=== PATIENT | female | born 1950 | race Caucasian/White ===

== ENCOUNTER 2017-06-01 00:41 | Emergency (ER) | payer MEDICARE, OTHER ==
[~2017-06-01] VITALS: Ht 167.6 cm; Wt 77.1 kg
[~2017-06-01 00:41] MED LIST: KEFLEX500 MG PO; LANTUS100 UNITS/; LISINOPRIL2.5 MG; METFORMIN HCL500 MG PO; SULFAMETHOXAZO1 EAC1 PO
[2017-06-01] MEDS ORDERED: OMEPRAZOLE20 MG PO (03:38)
[2017-06-02] MEDS ORDERED: ZOFRAN ODT4 MG PO (21:34)
[2017-07-13] MEDS ORDERED: LANTUS100 UNITS/ SUB-Q (15:36)
[2017-07-13] MEDS ORDERED: ASPIR 8181 MG PO (15:39)
[2017-07-13] MEDS ORDERED: MELATIN3 MG PO (15:40)
[2017-07-13] MEDS ORDERED: ADVIL PM CAPLE1 EACH PO (15:40)
[2017-09-03] MEDS ORDERED: NORCO 5-325 TA1 EACH PO (18:51)
[2017-09-03] MEDS ORDERED: ZOFRAN ODT4 MG PO (18:51)
[2017-09-03] MEDS ORDERED: REGLAN10 MG PO (21:19)
== END 2017-06-01 03:56 | disposition home or self-care (01) ==
LOC: ED 00:41
DX: R10.13 Epigastric pain (principal); R33.9 Retention of urine, unspecified; E11.9 Type 2 diabetes mellitus without complications; I10 Essential (primary) hypertension; Z88.1 Allergy status to other antibiotic agents; Z88.5 Allergy status to narcotic agent; Z79.4 Long term (current) use of insulin; Z79.899 Other long term (current) drug therapy
CPT/HCPCS: 74177; 80053; 81001; 83690; 85025; 87088; 96361; 96374; 99284; J2270; J2405; J7030; Q9967

== ENCOUNTER 2017-06-02 19:15 | Emergency (ER) | payer MEDICARE, OTHER ==
[~2017-06-02] VITALS: Ht 167.6 cm; Wt 77.1 kg
[~2017-06-02 19:15] MED LIST changes: +OMEPRAZOLE20 MG PO
[2017-06-02] MEDS ORDERED: ZOFRAN ODT4 MG PO (21:34)
[2017-07-13] MEDS ORDERED: LANTUS100 UNITS/ SUB-Q (15:36)
[2017-07-13] MEDS ORDERED: ASPIR 8181 MG PO (15:39)
[2017-07-13] MEDS ORDERED: ADVIL PM CAPLE1 EACH PO (15:40)
[2017-07-13] MEDS ORDERED: MELATIN3 MG PO (15:40)
[2017-09-03] MEDS ORDERED: ZOFRAN ODT4 MG PO (18:51)
[2017-09-03] MEDS ORDERED: NORCO 5-325 TA1 EACH PO (18:51)
[2017-09-03] MEDS ORDERED: REGLAN10 MG PO (21:19)
== END 2017-06-02 22:00 | disposition home or self-care (01) ==
LOC: ED 19:15
DX: K29.00 Acute gastritis without bleeding (principal); E11.9 Type 2 diabetes mellitus without complications; I10 Essential (primary) hypertension; Z88.1 Allergy status to other antibiotic agents; Z88.5 Allergy status to narcotic agent; Z79.899 Other long term (current) drug therapy; Z79.4 Long term (current) use of insulin
CPT/HCPCS: 76705; 80053; 81001; 83690; 85025; 96374; 96375; 99284; J1170; J2405

== ENCOUNTER 2017-07-14 09:21 | Day surgery (SDC) | payer MEDICARE, OTHER ==
[~2017-07-14] VITALS: Ht 167.6 cm; Wt 83.5 kg
[~2017-07-14 09:21] MED LIST changes: +ADVIL PM CAPLE1 EACH PO; +ASPIR 8181 MG PO; +LANTUS100 UNITS/ SUB-Q; +MELATIN3 MG PO; +ZOFRAN ODT4 MG PO
--- NOTE | 2017-07-14 11:06 | NUR ---
07/14/17 1105 Rika David 1042-PATIENT ARRIVED TO PACU ON 3L NC O2 SAT 99% PATIENT DROWSY DENIES PAIN OR NAUSEA. GLUCOSE CHECKED 105. ABDOMEN SOFT. 1059-PATIENT WEANED TO RA O2 SAT 95% TOLERATED SIPS OF WATER. 1105-PATIENT SLEEPING RR EVEN O2 92% RA
--- NOTE | 2017-07-15 09:12 | OR ---
[facility] [address], [place] [address] Signed DATE OF OPERATION: 07/14/2017 SURGEON: Anushka Love MD PREOPERATIVE DIAGNOSIS: Epigastric abdominal pain. POSTOPERATIVE DIAGNOSES: 1. Mild diffuse gastritis. 2. Tdbuubo-og-pwkbcqdw hiatal hernia. PROCEDURE: EGD with CLOtest and biopsies of bulb, antrum and GE junction. ESTIMATED BLOOD LOSS: None. INDICATIONS: Luis Newby is a 67-year-old female, who had at least two episodes of significant epigastric abdominal pain. She ended up in the emergency room. A CT scan of the abdomen and pelvis and the ultrasound of the upper abdomen is fine. HIDA scan showed her ejection fraction of 91%. She felt that it did very little to reproduce her symptoms with her injection of the CCK. She said that she was a little nauseated. She took omeprazole for 2 weeks and said that she actually felt better. She stopped that because she is afraid of osteoporosis. She told me she also was using a H2 mera and thought that helped as well. In the meantime, she was eating yogurt and cottage cheese. In the office, I gave her a pamphlet on upper endoscopy. We looked at that together along with the risks and benefits. We also discussed the need for IV conscious sedation. She had expressed understanding and wished to proceed. PROCEDURE NOTE: Luis Newby was taken into our endoscopy suite and placed in the supine semi-recumbent position. The posterior oropharynx was anesthetized with Hurricaine spray. She was given 3 mg of Versed and 100 mcg of fentanyl to cover the case. A bite block was utilized for the case. The adult gastroscope was introduced and advanced all the way out into the third portion of the duodenum under direct visualization of camera without difficulty. The duodenum was unremarkable. 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 The stomach showed some very mild diffuse erythematous changes, so biopsy was taken of the antrum for pathology as well as CLOtest. Upon retroflexion of scope, she clearly has a llecvun-kd-ukpnkxvr sized hiatal Electronically Signed By: ANUSHKA LOVE MD 07/15/17 0912 PATIENT NAME: LUIS MIGUEL OPERATIVE REPORT DATE OF : 48 REPORT #: [id number] PHYSICIAN: ANUSHKA LOVE MD PCP: MARINA COOK DO REPORT IS CONFIDENTIAL AND NOT TO BE RELEASED WITHOUT AUTHORIZATION [facility] [address], [place] [address] Signed hernia. There is no gastric or esophageal varices. The scope was withdrawn up to the area of the GE junction, which was compliant without stricture. She has moderate disruption to the Z-line. We went and took a biopsy of the GE junction. No Laws's mucosa, no distal esophagitis. The middle and upper esophagus were unremarkable. After this, the gas was suctioned out and the gastroscope removed. Luis Newby tolerated the procedure quite well. RECOMMENDATIONS: I will see Luis Newby back in my office in 7 to 14 days. She might consider ongoing therapy with an H2 mera. Anushka Love MD ALB/MODL /[id number] cc: MD Essie Novak PA-C Copies: ANUSHKA LOVE MD, CHLOE K PA-C ~ Electronically Signed By: ANUSHKA LOVE MD 07/15/17 0912 PATIENT NAME: LUIS MIGUEL OPERATIVE REPORT DATE OF : 48 REPORT #: [id number] PHYSICIAN: ANUSHKA LOVE MD PCP: MARINA COOK DO REPORT IS CONFIDENTIAL AND NOT TO BE RELEASED WITHOUT AUTHORIZATION
[2017-09-03] MEDS ORDERED: ZOFRAN ODT4 MG PO (18:51)
[2017-09-03] MEDS ORDERED: NORCO 5-325 TA1 EACH PO (18:51)
[2017-09-03] MEDS ORDERED: REGLAN10 MG PO (21:19)
== END 2017-07-14 11:45 | disposition home or self-care (01) ==
LOC: OPS 09:21 → DS 09:21 → OPS 11:45
PROVIDERS: Colon & Rectal Surgery
PROC: 0DB78ZX Excision of Stomach, Pylorus, Via Natural or Artificial Opening Endoscopic, Diagnostic (ICD-10-PCS; 2017-07-14)
PROC: 0DB48ZX Excision of Esophagogastric Junction, Via Natural or Artificial Opening Endoscopic, Diagnostic (ICD-10-PCS; 2017-07-14)
PROC: 0DB98ZX Excision of Duodenum, Via Natural or Artificial Opening Endoscopic, Diagnostic (ICD-10-PCS; principal; 2017-07-14 10:30)
DX: K29.50 Unspecified chronic gastritis without bleeding (principal); K29.80 Duodenitis without bleeding; K20.9 Esophagitis, unspecified; K44.9 Diaphragmatic hernia without obstruction or gangrene; E78.5 Hyperlipidemia, unspecified; E11.9 Type 2 diabetes mellitus without complications; Z88.1 Allergy status to other antibiotic agents; Z88.5 Allergy status to narcotic agent; Z88.8 Allergy status to other drugs, medicaments and biological substances; Z79.82 Long term (current) use of aspirin; Z79.899 Other long term (current) drug therapy; Z79.84 Long term (current) use of oral hypoglycemic drugs
CPT/HCPCS: 86677; 88305; G0500; J2250; J3010; J7120

== ENCOUNTER 2017-09-02 04:18 | Emergency (ER) | payer MEDICARE, OTHER ==
[~2017-09-02] VITALS: Ht 167.6 cm; Wt 83.5 kg
[2017-09-02] MEDS ORDERED: PROTONIX40 MG PO (06:46)
[2017-09-03] MEDS ORDERED: ZOFRAN ODT4 MG PO (18:51)
[2017-09-03] MEDS ORDERED: NORCO 5-325 TA1 EACH PO (18:51)
[2017-09-03] MEDS ORDERED: REGLAN10 MG PO (21:19)
== END 2017-09-02 07:21 | disposition home or self-care (01) ==
LOC: ED 04:18
DX: K29.00 Acute gastritis without bleeding (principal); E11.9 Type 2 diabetes mellitus without complications; I10 Essential (primary) hypertension; Z87.891 Personal history of nicotine dependence; Z88.1 Allergy status to other antibiotic agents; Z88.5 Allergy status to narcotic agent; Z88.6 Allergy status to analgesic agent; Z79.899 Other long term (current) drug therapy; Z79.84 Long term (current) use of oral hypoglycemic drugs; Z79.82 Long term (current) use of aspirin
CPT/HCPCS: 80053; 81001; 83690; 85025; 96374; 96375; 99283; J2270; J2405; J2765; J7030

== ENCOUNTER 2017-09-03 22:07 | Observation (INO) | payer MEDICARE, OTHER ==
[~2017-09-03] VITALS: Ht 167.6 cm; Wt 82.8 kg
--- NOTE | 2017-09-04 05:30 | NUR ---
up to brp, voided dark yellow urine, back to bed, no c/o n/v, slept this shift. No c/o pain . IVF infusing w/o problems. Coop with hosp routine. Requires one person assist.
--- NOTE | 2017-09-04 07:15 | NUR ---
BEDSIDE HANDOFF REPORT RECEIVED FROM CREATIVE INTERN RN. PT RESTING IN BED. PT DENIES NEEDS AT THIS TIME.
--- NOTE | 2017-09-04 07:51 | NUR ---
PT BLOOD GLUCOSE 201. PT DENIES PAIN. PT ON ROOM AIR, LUNG SOUNDS CLEAR. PT DENIES NAUSEA, ORDERED SMALL BREAKFAST, BOWLE TONES ACTIVE. PT WITHOUT EDEMA, CMS INTACT, PULSES PALPABLE. IV FLUIDS INFUSING AT 125 ML/HR, IV SITE PATENT, FLUSHED. PT ASSISTED TO BATHROOM WITH SBA, VOIDED, BRUSHED TEETH. PT SITTING IN CHAIR FOR BREAKFAST. PT DENIES OTHER NEEDS AT THIS TIME.
--- NOTE | 2017-09-04 09:17 | NUR ---
PATIENT UP IN CHAIR, HAS ONLY EATEN YOGURT FOR BREAKFAST, SAVED BANANA. HAS NOT DRANK ANYTHING. EAGER TO "GET OUT OF HERE" FRESH ICE WATER GIVEN. VISITOR SITTING NEXT TO PATIENT. CALL LIGHT IN REACH
== END 2017-09-04 11:00 | disposition home or self-care (01) ==
LOC: ED 22:07 → MS 22:09
PROVIDERS: ADMIT Internal Medicine
DX: R10.13 Epigastric pain (principal); R11.2 Nausea with vomiting, unspecified; E11.9 Type 2 diabetes mellitus without complications; I10 Essential (primary) hypertension; M47.9 Spondylosis, unspecified; K44.9 Diaphragmatic hernia without obstruction or gangrene; Z88.1 Allergy status to other antibiotic agents; Z88.5 Allergy status to narcotic agent; Z88.8 Allergy status to other drugs, medicaments and biological substances; Z79.84 Long term (current) use of oral hypoglycemic drugs; Z79.82 Long term (current) use of aspirin; Z79.891 Long term (current) use of opiate analgesic; Z79.899 Other long term (current) drug therapy
CPT/HCPCS: 94762; 96374; 99285; G0378

== ENCOUNTER → 2017-09-03 | Emergency (ER) | payer MEDICARE, OTHER ==
[~2017-09-03] VITALS: Ht 167.6 cm; Wt 68.0 kg
[~2017-09-03] MED LIST changes: +NORCO 5-325 TA1 EACH PO; +PROTONIX40 MG PO; +REGLAN10 MG PO
== END ==
LOC: ED 18:22
DX: K29.70 Gastritis, unspecified, without bleeding (principal); K44.9 Diaphragmatic hernia without obstruction or gangrene; E11.9 Type 2 diabetes mellitus without complications; I10 Essential (primary) hypertension; Z87.891 Personal history of nicotine dependence; Z88.1 Allergy status to other antibiotic agents; Z88.5 Allergy status to narcotic agent; Z88.8 Allergy status to other drugs, medicaments and biological substances; Z79.899 Other long term (current) drug therapy; Z79.82 Long term (current) use of aspirin; Z79.84 Long term (current) use of oral hypoglycemic drugs
CPT/HCPCS: 74177; 80053; 81001; 83690; 85025; 87088; 96361; 96374; 96375; 99284; J2270; J2405; J2765; J7030; Q9967

== ENCOUNTER 2017-11-04 07:25 | Emergency (ER) | payer MEDICARE, OTHER ==
[~2017-11-04] VITALS: Ht 167.6 cm; Wt 82.8 kg
[2017-11-04] MEDS ORDERED: LANTUS100 UNITS/ SUB-Q (07:45)
== END 2017-11-04 10:37 | disposition home or self-care (01) ==
LOC: ED 07:25
DX: R10.13 Epigastric pain (principal); K44.9 Diaphragmatic hernia without obstruction or gangrene; E11.9 Type 2 diabetes mellitus without complications; I10 Essential (primary) hypertension; Z88.1 Allergy status to other antibiotic agents; Z88.5 Allergy status to narcotic agent; Z88.8 Allergy status to other drugs, medicaments and biological substances; Z79.4 Long term (current) use of insulin; Z79.899 Other long term (current) drug therapy; Z79.82 Long term (current) use of aspirin
CPT/HCPCS: 80053; 83690; 85025; 96361; 96374; 96375; 99284; J1200; J1630; J7030

== ENCOUNTER 2019-01-30 08:27 | Day surgery (SDC) | payer MEDICARE, OTHER ==
[~2019-01-30] VITALS: Ht 167.6 cm; Wt 87.5 kg
[~2019-01-30 08:27] MED LIST changes: +CINNAMON500 MG PO; +FISH OIL 1,0001 EAC3 PO; +ICAPS AREDS SO1 EACH PO; +MAGNESIUM30 MG PO; +VITAMIN D400 UNIT PO
--- NOTE | 2019-01-30 10:21 | NUR ---
01/30/19 1021 Sheets,[place] 1008 PT ARRIVES TO PACU ASLEEP AND WAKES EASILY TO VERBAL STIMULI, PT DENIES NAUSEA AND PAIN. RESP EVEN AND UNLABORED. VSS. CBG 170. PT FALLS BACK ASLEEP.
--- NOTE | 2019-01-31 05:48 | OR ---
[facility] [address] [place], [place] [address] Signed DATE OF OPERATION: 01/30/2019 SURGEON: Anushka Love MD PREOPERATIVE DIAGNOSIS: Screening. POSTOPERATIVE DIAGNOSES: 1. Minimal sigmoid diverticulosis. 2. Lrsgcei-er-dcvrbyxl external anal skin tags. 3. Minimal internal hemorrhoids. PROCEDURE: Colonoscopy without biopsy. ESTIMATED BLOOD LOSS: None. INDICATIONS: Luis is a 68-year-old female, asked to see me for a followup screening colonoscopy. She had a negative colonoscopy back in 2010. She has no lower GI complaints currently. No family history of colon cancer or polyps. I met with Luis in the office and I gave her a pamphlet on colonoscopy. We reviewed the nature of the test along with the risks including, but not limited to gas, bloating, crampy abdominal pain, bleeding, perforation requiring surgery, and missed diagnosis. We also discussed the need for IV conscious sedation. She has done well with Versed and fentanyl in the past. She had expressed understanding and wished to proceed. PROCEDURE NOTE: Luis was taken into our endoscopy suite and placed in the left lateral decubitus position. She was given IV sedation with 6 mg of Versed and 125 mcg of fentanyl. A digital rectal exam was performed and she does have some external anal skin tags. The adult colonoscope was introduced and advanced all around into the cecum under direct visualization of camera. It took some extra sedation and abdominal compression in order to advance the scope. Overall, the prep was moderate. There were a few areas of liquid particulate stool matter. Most of that was suctioned out. We could see the appendiceal orifice and the ileocecal valve. The scope was slowly withdrawn. We took pictures throughout for photodocumentation. She does have a few diverticula in the sigmoid colon. They were mrzvyug-lk-ssnifnrx in size, minimal in number, and scattered about. The rectum was unremarkable. Upon retroflexion of scope, she does have minimal internal Electronically Signed By: ANUSHKA LOVE MD 01/31/19 0548 PATIENT NAME: LUIS MIGUEL ANN OPERATIVE REPORT DATE OF : 48 REPORT #: [id number] PHYSICIAN: ANUSHKA LOVE MD PCP: ESSIE DENTON PA-C REPORT IS CONFIDENTIAL AND NOT TO BE RELEASED WITHOUT AUTHORIZATION [address] [address] Signed hemorrhoids. After this, the gas was suctioned out and colonoscope removed. Luis tolerated the procedure quite well. RECOMMENDATIONS: Luis is welcome to follow up in 10 years for repeat colonoscopy so long as her health holds up. Anushka Love MD ALB/RIKKIL /[id number] cc: MD Essie Novak PA-C Copies: ANUSHKA LOVE MD, CHLOE K PA-C ~ Electronically Signed By: ANUSHKA LOVE MD 01/31/19 0548 PATIENT NAME: LUIS MIGUEL ANN OPERATIVE REPORT DATE OF : 48 REPORT #: [id number] PHYSICIAN: ANUSHKA LOVE MD PCP: ESSIE DENTON PA-C REPORT IS CONFIDENTIAL AND NOT TO BE RELEASED WITHOUT AUTHORIZATION
[2019-01-31] MEDS ORDERED: PROTONIX40 MG PO (16:00)
== END 2019-01-30 11:00 | disposition home or self-care (01) ==
LOC: DS 08:27 → OPS 08:27 → DS 09:45 → OPS 11:00
PROVIDERS: Colon & Rectal Surgery
PROC: 0DJD8ZZ Inspection of Lower Intestinal Tract, Via Natural or Artificial Opening Endoscopic (ICD-10-PCS; principal; 2019-01-30 09:45)
DX: Z12.11 Encounter for screening for malignant neoplasm of colon (principal); K57.30 Diverticulosis of large intestine without perforation or abscess without bleeding; K64.4 Residual hemorrhoidal skin tags; K64.8 Other hemorrhoids; E78.5 Hyperlipidemia, unspecified; E11.9 Type 2 diabetes mellitus without complications; M47.812 Spondylosis without myelopathy or radiculopathy, cervical region; Z88.1 Allergy status to other antibiotic agents; Z88.5 Allergy status to narcotic agent; Z88.6 Allergy status to analgesic agent; Z79.82 Long term (current) use of aspirin; Z79.4 Long term (current) use of insulin; Z79.899 Other long term (current) drug therapy
CPT/HCPCS: G0121; J2250; J3010; J7121

== ENCOUNTER 2019-01-31 12:53 | Emergency (ER) | payer MEDICARE, OTHER ==
[~2019-01-31] VITALS: Ht 167.6 cm; Wt 87.8 kg
[2019-01-31] MEDS ORDERED: PROTONIX40 MG PO (16:00)
== END 2019-01-31 16:35 | disposition home or self-care (01) ==
LOC: ED 12:53
DX: G89.18 Other acute postprocedural pain (principal); R10.13 Epigastric pain; E11.9 Type 2 diabetes mellitus without complications; I10 Essential (primary) hypertension; Z87.891 Personal history of nicotine dependence; Z88.8 Allergy status to other drugs, medicaments and biological substances; Z88.5 Allergy status to narcotic agent; Z88.1 Allergy status to other antibiotic agents; Z79.899 Other long term (current) drug therapy; Z79.82 Long term (current) use of aspirin; Z79.4 Long term (current) use of insulin
CPT/HCPCS: 74177; 80048; 85025; 99284-25; C9113; J2270; J2405; J2550; Q9967

== ENCOUNTER 2019-02-05 15:09 | Inpatient (IN) | payer MEDICARE, OTHER ==
[~2019-02-05] VITALS: Ht 167.6 cm; Wt 81.8 kg
[~2019-02-05 15:09] MED LIST changes: +MELATONIN10 M2 PO
--- OUTSIDE RECORDS SUMMARY | 2019-02-05 15:12 | XMS ---
PreManage Notification: LUIS MIGUEL [employer] Events No recent Security Events currently on file CRITERIA MET - [facility] [place] [facility] - 2 Visits in 30 Days CARE PROVIDERS ESSIE TOTH Physician Transit Survey Worker 11/07/2017-Current PHONE: [phone] Essie Toth PA-C Primary Care Current PHONE: [phone] Maritza Gotti Current PAC PHONE: Unknown [facility] has no Care Guidelines for this patient. E.D. VISIT COUNT (12 MO.) 2 [facility] TOTAL 2 NOTE: Visits indicate total known visits. ED/UCC VISIT TRACKING (12 MO.) 02/05/2019 15:10 [facility] [place] TYPE: Emergency COMPLAINT: - ABD PAIN, NAUSEA 01/31/2019 12:54 [facility] [place] TYPE: Emergency COMPLAINT: - POST OP ISSUES DIAGNOSES: - Personal history of nicotine dependence - Epigastric pain - Essential (primary) hypertension - Other acute postprocedural pain - Allergy status to other antibiotic agents status - 1 Type 2 diabetes mellitus without complications - Allergy status to oth drug/meds/biol subst status - Allergy status to narcotic agent status - residential (current) use of aspirin - residential (current) use of insulin - Other long-term (current) drug therapy INPATIENT VISIT TRACKING (12 MO.) No inpatient visits to display in this time frame [email or web address]
--- NOTE | 2019-02-05 19:05 | NUR ---
PATIENT TO ROOM. REPORT FROM [facility]. PATIENT ABLE TO TRANSFER TO BED STANDING AND TURNING. TOLERATED WELL. RATED PAIN 6/10 ON PAIN SCALE IN ABDOMEN HOWEVER FALLING ALSEEP WHEN ASKING QUESTIONS FOR HISTORY. PATIENT AWAKES EASILY, NOTED DESAT TO 70, APPLIED 3L NC WHILE SLEEPING SATURATION NOW 95%. IV FLUIDS INFUSING, CALL LIGHT WITHIN REACH.
--- NOTE | 2019-02-05 20:20 | NUR ---
PT CALLED NURSE, C/O NAUSEA AND ASKING FOR BAG. STARTED TO SIT UP AT EDGE OF BED THEN FELL BACK TO SLEEP. WHEN AWAKENED AGAIN REQUESTED SOMETHING FOR PAIN RATING EPIGASTRIC PAPIN 10/04 BUT THEN DID FALL BACK TO SLEEP. WHEN PT WAS AWAKE EXPRESSED CONCERN ABOUT SOMNOLENCE. WILL HOLD MS FOR NOW. DID GIVE PT 5MG REGLAN IV FOR NAUSEA. WHEN PT WAS ASLEEP DID LIGHTLY PALP ABD WITHOUT AWAKENING PT.
--- NOTE | 2019-02-05 21:20 | NUR ---
UP TO BSC TO VOID. JEANMARIE BEING UP FAIR THOUGH CONT TO BE NAUSEATED.
--- NOTE | 2019-02-05 23:50 | NUR ---
SAT AT EDGE OF BED FOR ABOUT 10 MIN PER REQUEST. CONT TO HAVE ABD PAIN 7/10. GIVEN 2 MG MORPHINE IV
--- NOTE | 2019-02-06 03:06 | NUR ---
CONT TO SLEEP. HAS OCC EPISODES OF SLEEP APNEA
--- NOTE | 2019-02-06 04:16 | NUR ---
AWAKE, UP TO BR TO VOID, JEANMARIE WELL. STATES IS FEELING MUCH BETTER. STATES NAUSEA IS MOSTLY GONE. GIVEN 5MG REGLAN IV. DR GORMAN GIVEN BRIEF UPDATE.
--- NOTE | 2019-02-06 04:34 | NUR ---
BACK TO SLEEP, SATS 90-91 WHILE ASLEEP.
--- NOTE | 2019-02-06 05:00 | NUR ---
PT BROUGHT TO THE FLOOR VIA BED FROM CCU. PT WAKES MINIMALLY DURING TRANSFER.
--- NOTE | 2019-02-06 06:22 | NUR ---
PT RESTING IN BED WITH EYES CLOSED. RESPIRATIONS EVEN AND UNLABORED. PT APPEARS TO BE SLEEPING. 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 CALL LIGHT IN REACH.
--- NOTE | 2019-02-06 08:30 | NUR ---
Patient is sleeping
--- NOTE | 2019-02-06 08:40 | NUR ---
PT APPEARS TO BE SLEEPING UPON THIS RN ENTERING ROOM. EYES CLOSED, RESP EVEN AND UNLABORED.
--- NOTE | 2019-02-06 09:17 | NUR ---
PT NOW AWAKE WATCHING TV. DENIES PAIN OR NAUSEA AT THIS TIME STATES "I'M FEELING MUCH BETTER." UPDATED ON POC. CALL LIGHT WITHIN REACH.
--- NOTE | 2019-02-06 13:00 | NUR ---
PT SITTING UP IN BED WATCHING TV. HAS BEEN JEANMARIE CLEAR LIQUIDS WELL. DENIES PAIN OR NAUSEA AT THIS TIME. GIVEN DIET 7UP AND TISSUES. CALL LIGHT WITHIN REACH.
[2019-02-06] MEDS ORDERED: ALENDRONATE SOD70 MG PO (14:29)
--- NOTE | 2019-02-06 14:32 | NUR ---
PT IS ALERT, ORIENTED AND RESTLESS.PT STATED SHE IS FEELING BETTER, BUT KNOWS THERE ARE MORE TESTS THAT ARE SCHEDULED TO GET TO THE BOTTOM OF WHAT IS GOING ON. SHE MENTIONED SHE WAS HUNGRY AND WOULD LIKE SOME BROTH AND FELT SHE COULD NOT WALK. ARRANGED BOTH WITH RN'S MEME AND ANASTASIYA. HAD PRAYER WITH PT, AND GAVE HER A Dominick ERVINPOSTS AND BLESSING. HER SON DAMASO CAME IN JUST I WAS LEAVING. WILL FOLLOW NEEDED
--- NOTE | 2019-02-06 15:20 | NUR ---
PT HAS BEEN INDEPENDENT IN ROOM. CONT TO JEANMARIE CLEARS WELL. DENIES PAIN, NAUSEA, OR OTHER CONCERNS AT THIS TIME. CALL LIGHT WITHIN REACH.
[2019-02-06] MEDS ORDERED: PROTONIX40 MG PO (17:00)
[2019-02-06] MEDS ORDERED: IRON325 M1 PO (17:00)
[2019-02-06] MEDS ORDERED: VITAMIN C500 M1 PO (17:00)
--- NOTE | 2019-02-06 17:01 | NUR ---
MED REC COMPLETE
--- NOTE | 2019-02-06 17:10 | NUR ---
PT SITTING UP IN BED WATCHING TV. SON AT BEDSIDE. DENIES NEEDS OR CONCERNS AT THIS TIME. CALL LIGHT WITHIN REACH.
--- NOTE | 2019-02-06 17:25 | NUR ---
Spoke with Lashon Newby in her room. She is a like time frient, c/o of severe abd pain yesterday, which is gone today. Lives alone, son visits daily and does her laundry as she has difficulty with stair due to knee and hip/back pain. She has been receiving injections from an [employer] for this. Feels she can dc to home when feeling better.
--- NOTE | 2019-02-06 18:42 | NUR ---
PT AMB HALLWAY WITH SON. JEANMARIE WELL, DENIES NEEDS OR CONCERNS AT THIS TIME.
--- NOTE | 2019-02-06 20:40 | NUR ---
PATIENT'S SON CAME AND GOT ME TO LET ME KNOW HIS MOTHER WAS HAVING DRY HEAVES AGAIN. 5MG IV REGLAN GIVEN AND 40MG IV PROTONIX. BLOOD SUGAR WAS 129 SO NO INSULIN NEEDED. PATIENT LAYING BACK IN BED TRYING TO RELAX AND HER [facility]. CALL LIGHT IN REACH.
--- NOTE | 2019-02-06 22:03 | NUR ---
PATIENT'S SON CAME OUT AND NAUSEA WAS NOT MUCH BETTER, AND ABD PAIN IS 9/10. 2MG IV MS SIVP WAS GIVEN AND DR. MALIK INFORMED. HE IS GOING TO PUT IN AN ORDER FOR PROMETHAZINE.
--- NOTE | 2019-02-06 22:22 | NUR ---
PATIENT GIVEN 12.5MG IV PHENERGAN IN 20MLS NS FOR CONTINUED NAUSEA. CALL LIGHT IN REACH. PATIENT SITTING ON BEDSIDE AT POSITION OF COMFORT. PATIENT'S SON ASLEEP ON THE COUCH.
--- NOTE | 2019-02-06 22:33 | NUR ---
V/S AND I&O TAKEN AND RECORDED BY THE PRIMARY RN KELSI.
--- NOTE | 2019-02-06 23:30 | NUR ---
PATIENT CALLED AND DRY HEAVES HAVE STOPPED, BUT SHE STILL SAID SHE IS NAUSEATED AND HAVING 8/10 ABD PAIN. INFORMED PATIENT IT WOULD BE A FEW MORE MINUTES UNTIL I COULD GIVE HER ANY MORE MORPHINE. PATIENT VRBALIZED UNDERSTANDING. CALL LIGHT IN REACH.
--- NOTE | 2019-02-07 00:11 | NUR ---
PATIENT GIVEN 2 MORE MG IV MORPHINE AND IS RESTING QUIETLY AT THIS TIME WITH EQUAL AND REGULAR RESPIRATIONS SUPINE ON IN HER BED. CALL LIGHT IN REACH.
--- NOTE | 2019-02-07 01:10 | NUR ---
CALLED LET HIM KNOW PATIENT IS STILL HAVING NAUSEA ISSUES AND 7/10 ABD PAIN. HE ORDERED 1 DOSE OF 1,000MG IV TYLENOL TO RUN OVER 15 MINUTES.
--- NOTE | 2019-02-07 01:12 | NUR ---
PATIENT WAS JUST GIVEN ANOTHER DOSE OF 4MG IV ZOFRAN.
--- NOTE | 2019-02-07 01:25 | NUR ---
PATIENT CURRENTLY GETTING HER IV TYLENOL. PATIENT DROWSY. CALL LIGHT IN REACH.
--- NOTE | 2019-02-07 02:33 | NUR ---
PATIENT RECEIVED 2MG MORE MS AND 5MG REGLAN FOR NAUSEA AND PAIN. PATIENT PAIN BACK TO 8/10 AND SHE IS VERY EXPRESIVE THAT THE CURRENT TREATMENT IS NOT REALLY WORKING. THIS INFORMATION WAS PASSED ON TO THE CHARGE NURSE, TOBI.
--- NOTE | 2019-02-07 04:55 | NUR ---
PATIENT HAS REQUIRED MORPHINE AND 3 DIFFERENT ANTIEMETICS MOST OF THE NIGHT, AND HAS BEEN UNCOMFORTABLE AND SLEPT OFF AND ON MOST OF THE NIGHT. NO MORE MEDS HAVE BEEN REQUESTED SINCE ABOUT 230AM AT THIS TIME AND PATIENT'S SON IS AT THE BEDSIDE. PATIENT IS ON D5LR WITH 20KCL AT 125MLS/HR. PATIENT IS CURRENTLY RESTING QUIETLY IN HER RIGHT SIDE, EYES CLOSED, RESPIRATIONS REGULAR AND EVEN, WITH CALL LIGHT IN REACH.
--- NOTE | 2019-02-07 05:54 | NUR ---
PATIENT JUST GOT ANOTHER 2MG IV MORPHINE FOR AND PAIN 08/04 AND PATIENT WAS GIVEN 12.5MG IV PHENERGAN IN 20MLS NS. PATIENT STOOD FOR MORNING WEIGHT. RESTING QUIETLY NOW. CALL LIGHT IN REACH. PATIENT'S SON IN ROOM.
--- NOTE | 2019-02-07 07:25 | NUR ---
PT UP TO RESTROOM WITH SBA FROM RECONSIGNMENT CLERK. REPORT RECEIVED FROM SALIMA DOLAN.
--- NOTE | 2019-02-07 07:48 | NUR ---
PT RESTING ON LEFT LATERAL SIDE IN BED EYES CLOSED AND RESPIRATIONS EVEN AND UNLABORED. CALL LIGHT IN REACH. PT REMAINS NPO IN PREPERATION FOR COLONOSCOPY. .
--- NOTE | 2019-02-07 07:50 | NUR ---
PATIENT RESTING IN BED. SON AND RN IN ROOM. HANDS AND FACE CLEANED. PATIENT SAYS THAT MAYBE SHE IS GOING TO TAKE A SHOWER LATER. CALL DAVID MEREDITH. NO OTHER NEEDS AT THIS TIME
--- NOTE | 2019-02-07 08:00 | NUR ---
PATIENT RESTING IN BED. SON IN ROOM. PATIENT REFUSED TO TAKE A SHOWER
--- NOTE | 2019-02-07 08:55 | CONS ---
[facility] [address], [place] [address] Signed DATE OF CONSULTATION: 02/07/2019 CHIEF COMPLAINT: Epigastric abdominal pain. HISTORY OF PRESENT ILLNESS: Luis is a 68-year-old diabetic female, we have known for several years. She has had several years of ongoing issues with epigastric abdominal pain. She has been in the emergency room multiple times. She has had upper endoscopy in 2018 showing a hiatal hernia with some mild gastritis. Her recent colonoscopy showed some minimal diverticulosis and minimal internal hemorrhoids. She has had multiple CT scans, all of which have been unremarkable including one just a few days ago in the emergency room. She had a gallbladder ultrasound previously and it was negative. The HIDA scan showed her gallbladder ejection fraction of 91%, but it did not seem to reproduce her symptoms any significant degree. She thought maybe she was little nauseated. She has now been in our emergency room a couple of times within the last week or so. She has been admitted to the Internal Medicine Service. Blood work shows that she has significant iron deficiency anemia. Luis is not able to tell me today if that is new or chronic. There was some mention in the notes that she has some rare blood disorder that she was diagnosed at [facility]. I have been asked to see her as the local general surgeon for consideration of repeat upper endoscopy with biopsies to rule out any gastritis or ulcer disease. ALLERGIES: Cipro, codeine, and meloxicam. MEDICATIONS: Magnesium, aspirin, cinnamon, fish oil, Icaps, Lantus, lisinopril, melatonin, metformin, vitamin D. PAST MEDICAL HISTORY: Hyperlipidemia, type 2 diabetes, cervical spondylolysis, hiatal hernia, gastritis, diverticulosis, internal hemorrhoids. PAST SURGICAL HISTORY: Includes oophorectomy in 1978, a in 1985, and knee surgery in 1975. SOCIAL HISTORY: She does not smoke, but has an occasional drink. She has a son. She prefers the [facility]. 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 She is and has two children. Her primary care provider is Essie Toth. Electronically Signed By: ANUSHKA LOVE MD 02/07/19 0855 PATIENT NAME: LUIS MIGUEL CONSULTATION DATE OF : 48 REPORT #: [id number] PHYSICIAN: ANUSHKA LOVE MD PCP: ESSIE TOTH PA-C REPORT IS CONFIDENTIAL AND NOT TO BE RELEASED WITHOUT AUTHORIZATION [facility] [address], [place] [address] Signed FAMILY HISTORY: Heart disease in her grandparents, father and sister. Cancer in her father. REVIEW OF SYSTEMS: She had 10 systems reviewed and she told me her had of colon cancer a number of years ago. This morning, she is quite sleepy, although, cooperative, was not particularly detailed in her answers. PHYSICAL EXAMINATION: VITAL SIGNS: Her blood pressure 151/88, heart rate 77, respiratory rate 18, temperature is 98.3. She is 97% on room air. She is 5 feet 6 inches and 83 kg. GENERAL: Luis is a 68-year-old female, who appears older than her stated age. LUNGS: Clear to auscultation. HEART: Regular rate and rhythm. ABDOMEN: Generally soft, flat, benign. She points to the epigastric area and the xiphoid process as the area of her pain. LABORATORY DATA: Her white blood count is 8.2 with a hemoglobin of 7.3, it started at 7.9, it went to 7.1 with hydration. Her mean cell volume 71. Her iron stores are low. Her sodium is 140, potassium was slightly low at 3.2, BUN 12, creatinine 0.46, glucose is running 94-156, and phosphorus is a little low at 2.4. RADIOGRAPHIC STUDIES: She had a CT scan of the abdomen and pelvis a few days ago in the emergency room and it is unremarkable. Her previous gallbladder ultrasound and HIDA scan were not particularly concerning. The recent colonoscopy without biopsy showed minimal diverticulosis and just small internal hemorrhoids. We know that an EGD from 2018 showed a small hiatal hernia with some mild gastroduodenitis. ASSESSMENT AND PLAN: Luis is a 68-year-old female, who presents with ongoing chronic intermittent epigastric/subxiphoid abdominal pain. She told me this morning she is feeling much better. I have been asked by the Medical Service to consider repeat upper endoscopy to rule out any gastritis or ulcers. Luis is very familiar with upper endoscopy. I reviewed with her today and she is more than happy to proceed in that direction. We are going to add her on to our surgical list today. We will get to her later this morning or sometime in the middle of the day. She has expressed understanding and would like to proceed as above. In the meantime, one has to keep in mind that her gallbladder could be acting up intermittently, particularly with her history of diabetes. It might be worthwhile to repeat the gallbladder ultrasound and/or HIDA scan in the future, although she does not specifically describe gastroparesis, she is diabetic and one could consider a solid phase gastric emptying scan. If the upper and lower endoscopy are negative with respect to the anemia, she might consider a small-bowel follow through and if that is Electronically Signed By: ANUSHKA LOVE MD 02/07/19 0855 PATIENT NAME: LUIS MIGUEL CONSULTATION DATE OF : 48 REPORT #: [id number] PHYSICIAN: ANUSHKA LOVE MD PCP: ESSIE TOTH PA-C REPORT IS CONFIDENTIAL AND NOT TO BE RELEASED WITHOUT AUTHORIZATION [facility] [address] [place] [address] [place], [place] [address] Signed negative, she could consider a capsule endoscopy. Anushka Love MD ALB/MODL /[id number] cc: LIDIA Newsome MD Copies: ESSIE TOTH PA-C, ANDREW L MD ~ Electronically Signed By: ANUSHKA LOVE MD 02/07/19 0855 PATIENT NAME: LUIS MIGUEL ANN CONSULTATION DATE OF : 48 REPORT #: [id number] PHYSICIAN: ANUSHKA LOVE MD PCP: ESSIE TOTH PA-C REPORT IS CONFIDENTIAL AND NOT TO BE RELEASED WITHOUT AUTHORIZATION
--- NOTE | 2019-02-07 09:50 | NUR ---
02/07/19 0950 Valencia Ballard 0922 PT ARRIVED IN PACU NON RESPONSIVE TO NOXIOUS STIMULI WITH CHIN LIFT HELD BY RN. 0926 PT REACTIVE. 0930 BLOOD SUGAR 152 ON ARRIVAL. PT AWAKENS TO VERBAL STIMULI, THEN FALLS BACK TO SLEEP. 0950 RESTING. REU.
--- NOTE | 2019-02-07 10:05 | NUR ---
PT ARRIVED BACK TO ROOM 122 VIA GOURNEY AND TRANSFERED INTO BED WITH SBA. PT ALERT AND ORIENTED AND DENIES SOB, NAUSEA OR PAIN. CALL LIGHT AND H2O IN REACH. VSS ON RA. ASSESSMENT COMPLETED. NO NEEDS OR CONCERNS VOICED.
--- NOTE | 2019-02-07 10:42 | NUR ---
PATIENT RESTING IN BED. SON IN ROOM. VITAL SIGNS DONE BY RN. I&O DONE. CALL LIGHT WITHIN REACH. NO OTHER NEEDS AT THIS TIME
--- NOTE | 2019-02-07 11:29 | NUR ---
PT REPORTS ACHING PAIN TO ABDOMEN OF 7/10 AND ALSO REPORTS SOME NAUSEA. PT REQUESTED AND RECEIVED PRN IV REGLAN AND PRN IV MORPHINE. CALL LIGHT AND H2O IN REACH. PT DENIES FURTHER NEEDS OR CONCERNS; VSS.
--- NOTE | 2019-02-07 12:36 | NUR ---
PT RESTING SUPINE IN BED, ALERT AND ORIENTED. LAB IN TO DRAW BLOOD FOR ORDERED LAB TESTS. NO NEEDS OR CONCERNS VOICED. CALL LIGHT IN REACH AND PT AWARE THAT SHE IS TO REMAIN NPO WITH NO OPIODS TO BE ADMINISTERED PENDING ORDERED IMAGING STUDY THIS AFTERNOON.
--- NOTE | 2019-02-07 13:27 | NUR ---
PT REPORTS PAIN OF 7/10 TO ABDOMEN. PT REQUESTED AND RECEIVED PRN IV PHENERGAN. ASSESSMENT COMPLETED. CALL LIGHT IN REACH. PT REMAINS NPO PENDING STUDY. PT DENIES FURTHER NEEDS OR CONCERNS.
--- NOTE | 2019-02-07 13:27 | NUR ---
PT REPORTS PAIN OF 7/10 TO ABDOMEN. PT REQUESTED AND RECEIVED PRN IV TORADOL. ASSESSMENT COMPLETED. CALL LIGHT IN REACH. PT REMAINS NPO PENDING STUDY. PT DENIES FURTHER NEEDS OR CONCERNS.
--- NOTE | 2019-02-07 14:26 | NUR ---
PATIENT RESTING IN BED. VITAL SIGNS AND I&O DONE. PATIENT DID NOT VOID DURING THIS PERIOD. RN NOTIFIED. CALL LIGHT WITHIN REACH. NO OTHER NEEDS AT THIS TIME
--- NOTE | 2019-02-07 14:43 | NUR ---
PT REPORTS NAUSEA. PT REQUESTED AND RECEIVED PRN IV PHENERGAN. NO FURTHER NEEDS OR CONCERNS VOICED.
--- NOTE | 2019-02-07 14:57 | NUR ---
PT WAS LAYING IN BED, LAYING ON R SIDE. SHE SAID SHE WAS IN PAIN-GAVE AN 8. PT ALSO MENTION THAT HER RN WAS TO COME IN AND GIVE SOMETHING FOR PAIN-BUT HAS NOT. TALKED WITH RN SAUMYA, HE SAID HE HAD BEEN IN AND GAVE HER MEDS AND TOLD HER WHAT HE WAS DOING. WILL GO BACK IN AND CARE FOR PT. SHE REQUESTED PRAYER, WILL FOLLOW NEEDED
--- NOTE | 2019-02-07 15:57 | NUR ---
Spoke with Lashon garay. She has returned from EGD and remains sleepy. Son is in the remain. She is asking about results and informed will need to explain these to her.
--- NOTE | 2019-02-07 16:53 | NUR ---
PT RESTING ON LEFT LATERAL SIDE IN BED, EYES CLOSED AND RESPIRATIONS EVEN AND UNLABORED. PT APPEARS TO BE SLEEPING COMFORTABLY. CALL LIGHT IN REACH. IV MAINTENANCE FLUIDS CONTINUE TO INFUSE. PT REMAINS NPO.
--- NOTE | 2019-02-07 17:10 | NUR ---
CALL LIGHT ANSWERED. PATIENT USING BATHROOM. PATIENT BACKS TO BED. ONE PERSON ASSISTING. VITAL SIGNS AND I&O DONE. CALL LIGHT WITHIN REACH. NO OTHER NEEDS AT THIS TIME
--- NOTE | 2019-02-07 18:25 | NUR ---
Pt remains off of floor in imaging.
--- NOTE | 2019-02-07 19:14 | NUR ---
PT ARRIVED BACK FROM IMAGING. PT REPORTS INCREASED ABDOMINAL PAIN. PT REQUESTED AND RECEIVED PRN IV TORADOL. CALL LIGHT AND H2O IN REACH. NO FURTHER NEEDS OR CONCERNS VOICED.
--- NOTE | 2019-02-07 20:34 | NUR ---
PATIENT WAS GIVEN TORADOL FOR PAIN ON ARRIVAL BACK FROM SCAN AT CHANGE OF SHIFT BY DAY RNVARGAS. PATIENT REMAINS NAUSEATED AND WAS GIVEN 4MG IV ZOFRAN AND HER IV PROTONIX, NAUSEA WAS NOT IMPROVING AND 10MG IV COMPAZINE GIVEN DILUTED IN 20ML NS. PATIENT RESTING QUIETLY NOW FOR THE MOMMENT WITH EVEN AND REGULAR RESPIRATIONS. EYES CLOSED, WARM BLANKET GIVEN. CALL LIGHT IN REACH.
--- NOTE | 2019-02-07 21:00 | NUR ---
ROUNDED CHARGE. PATIENT IS RESTING IN BED. PATIENTS SON IS PRESENT. PATIENT AND SON DENY ANY COMMENTS, QUESTIONS OR CONCERNS. NO NEEDS NOTED. CALL LIGHT IN REACH.
--- NOTE | 2019-02-07 22:53 | NUR ---
PATIENT RESTING QUIETLY, RESPIRATIONS REGULAR AND EVEN AT A RATE OF 18. PATIENT'S SON IS IN THE ROOM AT BEDSIDE. PATIENT'S EYES ARE CLOSED. NO DISTRESS NOTED. LIGHTS OFF. CALL LIGHT IN REACH.
--- NOTE | 2019-02-08 00:51 | NUR ---
PATIENT RESTING QUIETLY RESTING ON HER LEFT SIDE. EYES CLOSED AND PATIENT APPEARS IN NO DISTRESS. RESPIRATIONS ARE REGULAR AND EVEN. SON AT BEDSIDE AWAKE AND CALL LIGHT IS IN REACH.
--- NOTE | 2019-02-08 02:33 | NUR ---
PATIENT STILL RESTING QUIETLY ON HER LEFT SIDE, RESPIRATIONS REGULAR AND EVEN, EYES CLOSED, RESPS 18. PATIENT'S SON REMAINS AWAKE AT WORK ON HIS COMPUTER AT BEDSIDE. CALL LIGHT IN REACH.
--- NOTE | 2019-02-08 04:48 | NUR ---
PATIENT HAS PRETTY MUCHED SLEPT AFTER SHE RETURNED TO THE FLOOR AT CHANGE OF SHIFT AND HAD BEEN GIVEN TORADOL AND IV NAUSEA MEDS. SHE WAS EXHAUSTED. DID WAKE HER A SHORT TIME AGO TO SEE IF SHE NEEDED TO VOID SHE HAS NOT SINCE RETURNING FROM HER SCAN, BUT SHE SAID SHE DID NOT NEED TO VOID YET AND SHE USUALLY PEE'S ABOUT A THOUSAND MLS AT A TIME. PATIENT CONTINUES TO REST QUIETLY WITH EYES CLOSED AND PATIENT REMAINS AT BEDSIDE. CALL LIGHT IN REACH.
--- NOTE | 2019-02-08 07:25 | OR ---
[facility] [address], [place] [address] Signed DATE OF OPERATION: 02/07/2019 SURGEON: Anushka Love MD PREOPERATIVE DIAGNOSES: 1. Iron deficiency anemia. 2. Chronic epigastric abdominal pain. 3. History of hiatal hernia. 4. History of gastritis. POSTOPERATIVE DIAGNOSES: 1. Minimal distal gastritis. 2. Moderate-sized hiatal hernia (44-38 cm). PROCEDURES: EGD with CLOtest and biopsies of the antrum and GE junction. ESTIMATED BLOOD LOSS: None. FINDINGS: No evidence of any old or recent bleeding. INDICATIONS: Luis is a 68-year-old female, who has had epigastric abdominal complaints actually for a number of years. She has been in our local emergency room many times. She actually had an upper endoscopy back in June of 2017. She is known to have minimal gastritis along with a moderate-sized hiatal hernia. She just had a colonoscopy a couple of weeks ago. She had some diverticulosis and some internal hemorrhoids. Since then, she has come back to our emergency room twice complaining of epigastric abdominal pain. She was admitted to the Internal Medicine Service. She has anemia initially with a hemoglobin of 7.9 down to 7.1 and this morning, it was 7.3. Her mean cell volume is low at 71. She has low iron stores on her labs. Consequently, I was asked to see her as a local general surgeon to repeat the upper endoscopy and make sure there are no concerns for any bleeding in the stomach. I had met with Luis this morning and I reviewed all this with her in detail. She is very familiar obviously with endoscopy. She understands there is risk including, but not limited to gas, bloating, crampy abdominal pain, bleeding, perforation requiring surgery, and missed diagnosis. Also because of her advanced age and concerns for bleeding in the stomach, we asked an anesthesia provider to help us with increased monitoring of the airway along with infusion of propofol. She Electronically Signed By: ANUSHKA LOVE MD 02/08/19 0725 PATIENT NAME: LUIS MIGUEL ANN OPERATIVE REPORT DATE OF : 48 REPORT #: [id number] PHYSICIAN: ANUSHKA LOVE MD PCP: DANYELL DENTON PA-C REPORT IS CONFIDENTIAL AND NOT TO BE RELEASED WITHOUT AUTHORIZATION [facility] [address] [place], [place] [address] Signed had expressed understanding and wished to proceed. PROCEDURE NOTE: Luis was taken into our endoscopy suite and placed in the supine semi-recumbent position. She was given IV sedation per our nurse trip rider with propofol. The posterior oropharynx was anesthetized with lidocaine spray. A bite block was utilized for the case. The adult gastroscope was introduced and advanced out into the third portion of the duodenum under direct visualization of camera without difficulty. The duodenum and pyloric channel were unremarkable. She had just a tiny bit of inflammation in her distal stomach. We went ahead and took a biopsy of the antrum for pathologic review as well as CLOtest. Her previous CLOtest was negative back in 2018. No ulcerations in the pyloric bulb nor the stomach. The remainder of the stomach was unremarkable. Upon retroflexion of scope, she indeed has her hiatal hernia. There was no gastric or esophageal varices. The scope was withdrawn up through the area of the GE junction. It measured out roughly 44-38 cm. It is around 4-6 cm in length. She does have some disruption to the Z-line with some very minimal granulation tissue. No obvious Laws's mucosa. We went ahead and took a biopsy from the Z-line for pathologic review. The distal, middle and upper esophagus were unremarkable. After this, the gas was suctioned out and the gastroscope removed. Luis tolerated procedure quite well. RECOMMENDATIONS: Luis will be returned to her room and resumed on her diet. She could consider an outpatient small-bowel follow-through and if that is negative, a capsule endoscopy. We are more than happy to see her in my office here in a week or so for followup to review the biopsies. Anushka Love MD ALB/MODL /[id number] cc: LIDIA Newsome MD Electronically Signed By: ANUSHKA LOVE MD 02/08/19 0725 PATIENT NAME: LUIS MIGUEL ANN OPERATIVE REPORT DATE OF : 48 REPORT #: [id number] PHYSICIAN: ANUSHKA LOVE MD PCP: DANYELL DENTON PA-C REPORT IS CONFIDENTIAL AND NOT TO BE RELEASED WITHOUT AUTHORIZATION [address] [address] Signed Copies: DANYELL DENTON PA-C, ANDREW L MD ~ Electronically Signed By: ANUSHKA LOVE MD 02/08/19 0725 PATIENT NAME: LUIS MIGUEL ANN OPERATIVE REPORT DATE OF : 48 REPORT #: [id number] PHYSICIAN: ANUSHKA LOVE MD PCP: DANYELL DENTON PA-C REPORT IS CONFIDENTIAL AND NOT TO BE RELEASED WITHOUT AUTHORIZATION
--- NOTE | 2019-02-08 08:10 | NUR ---
PT REPORTS PERSISTING NAUSEA SO PER PT REQUEST PRN IV COMPAZINE ADMINISTERED. AM ASSESSMENT COMPLETED. CALL LIGHT IN REACH. NO FURTHER NEEDS OR CONCERNS VOICED.
--- NOTE | 2019-02-08 10:00 | NUR ---
In to speak with pt. She is nauseated and retching. States having her gallbladder out tomorrow. Rn notified of nausea
--- NOTE | 2019-02-08 12:32 | NUR ---
PT RESTING ON LEFT LATERAL SIDE IN BED ALERT AND ORIENTED AND REPORTS 5/10 ACHING PAIN TO EPIGASTRIC AREA. PT REQUESTED AND RECEIVED 2MG PRN IV MORPHINE -SEE EMAR. CALL LIGHT AND PERSONAL BELONGINGS IN REACH PT. AWARE OF NPO STATUS.
--- NOTE | 2019-02-08 14:11 | NUR ---
PT RESTING ON LEFT LATERAL SIDE IN BED EYES CLOSED NAD RESPIRATIONS EVEN AND UNLABROED. PT ALERT TO VOICE. SCHEDULED IV MEDS ADMINISTERED -SEE EMAR. CALL LIGHT IN REACH. PT REMAINS NPO. NO NEEDS OR CONCERNS VOICED.
--- NOTE | 2019-02-08 14:53 | NUR ---
MET WITH PT'S SON DAMASO. HE SAID PT IS TO HAVE EVELYNE POWER TUESDAY. TRIED SEVERAL TIMES TO VISIT WITH PT. SHE WAS ASLEEP OR OTHER STAFF IN. WILL FOLLOW NEEDED
--- NOTE | 2019-02-08 16:40 | NUR ---
PT RESTING ON RIGHT LATERAL SIDE IN BED, EYES CLOSED AND RESPIRATIONS EVEN AND UNLABORED. CALL LIGHT AND H2O IN REACH. FAMILY AT BEDSIDE. PT APPEARS TO BE SLEEPING COMFORTBALY.
--- NOTE | 2019-02-08 16:50 | PATH ---
[facility] [address] [place], [place] [address] Signed SPECIMEN(S): A ANTRUM SPECIMEN(S): B GE JUNCTION SPECIMEN SOURCE: A. ANTRUM B. GE JUNCTION CLINICAL HISTORY: Anemia, epigastric pain. Post: Hiatal hernia. MICROSCOPIC DESCRIPTION: Histologic sections of all submitted blocks are examined by light microscopy. These findings, together with the gross examination, support the pathologic diagnosis. FINAL PATHOLOGIC DIAGNOSIS: A. Stomach, antrum, biopsy: - Antral mucosa with mild chronic, inactive gastritis. - No Helicobacter organisms identified, see Comment. - Negative for dysplasia or malignancy. B. Gastroesophageal junction, biopsy: - Cardiac type mucosa with mild chronic, inactive gastric. No Helicobacter organisms identified, see Comment. - Negative for intestinal metaplasia, dysplasia, or malignancy. COMMENT: Immunohistochemical stains (with appropriately staining controls) for H. pylori performed on both specimens A and B are negative for Helicobacter organisms. NAL:cml:C2NR GROSS DESCRIPTION: Two specimens are received in two containers, labeled "RE." A. The specimen, labeled "RE, antrum biopsy," is received in formalin and consists of a single 0.3 cm mccauley tissue fragment. Specimen is entirely submitted in cassette (A1). B. The specimen, labeled "RE, GE junction biopsy," is received in formalin and consists of a single 0.2 cm mccauley tissue fragment. Specimen is entirely submitted in cassette (B1). AM (under the direct supervision of a pathologist) The Gross Description was prepared using a voice recognition system. The report was reviewed for accuracy; however, sound-alike word errors, addition and/or deletions may occur. If there is any PATIENT NAME: LUIS MIGUEL PATHOLOGY DATE OF : 48 REPORT #: [id number] PHYSICIAN: ANGIE PATHOLOGY PCP: DANYELL DENTON PA-C REPORT IS CONFIDENTIAL AND NOT TO BE RELEASED WITHOUT AUTHORIZATION [facility] [address] [place] [id number] Signed question about this report, please contact Client Services. ADDITIONAL NOTES: Immunohistochemical and/or in situ hybridization studies were performed on this case with the appropriate positive controls that react as expected. This test was developed and its performance characteristics determined by [employer] [facility]. It has not been cleared or approved by the U.S. Food and Drug Administration. The FDA has determined that such clearance or approval is not necessary. This test is used for clinical purposes. It should not be regarded as investigational or for research. [employer] [facility] is certified under the Clinical Laboratory Improvement Amendments of 1988 (CLIA) as qualified to perform high complexity clinical laboratory testing. PERFORMING LABORATORY: The technical component was performed by [facility], [address] [place] [id number] (Bradder: Mery Serrato MD; CLIA# [id number]). [facility], [address] [address] (Bradder: Andrew Singleton MD; CLIA# [id number]). Diagnostician: Gale Cason MD Pathologist Electronically Signed 02/08/2019 Copies: ~ PATIENT NAME: LUIS MIGUEL ANN PATHOLOGY DATE OF : 48 REPORT #: [id number] PHYSICIAN: ANGIE PATHOLOGY PCP: DANYELL DENTON PA-C REPORT IS CONFIDENTIAL AND NOT TO BE RELEASED WITHOUT AUTHORIZATION
--- NOTE | 2019-02-08 18:57 | NUR ---
I ASKED PATIENT IF SHE WOULD LIKE TO TAKE A SHOWER AND SHE SAID NO NOT TODAY.
--- NOTE | 2019-02-08 20:10 | NUR ---
PATIENT HAS NO PAIN AND NO NAUSEA. PATIENT DOING WELL. SON AT BEDSIDE. PATIENT GOING TO TAKE A BATH. CALL LIGHT IN REACH.
--- NOTE | 2019-02-08 21:06 | NUR ---
PATIENT BACK IN BED NOW FROM HER SHOWER AND SAYS,"I'M FEELING MUCH BETTER." CALL LIGHT IN REACH.
--- NOTE | 2019-02-08 22:32 | NUR ---
PATIENT SITTING IN BEDD PLAYING ON HER TABLET, NO PAIN, NO NAUSEA, SON IN ROOM, CALL LIGHT IN REACH.
--- NOTE | 2019-02-09 00:57 | NUR ---
PATIENT SITTING IN HER BED PLAYING ON HER TABLET AND WATCHING TV. PATIENT HAD NO NEEDS. CALL LIGHT IN REACH.
--- NOTE | 2019-02-09 02:50 | NUR ---
PATIENT RESTING QUIETLY ON HER RIGHT SIDE. EYES CLOSED, RESPIRATIONS REGULAR AND EVEN, CALL LIGHT IN REACH.
--- NOTE | 2019-02-09 05:24 | NUR ---
PATIENT SLEPT MOST OF THE PREVIOUS NIGHT AND MOST OF THE DAY YESTERDAY PER HER , SO SHE WAS AWAKE MOST OF THE NIGHT ON HER TABLET AND WATCHING TV AND VISITING WITH HER SON. NO PAIN AND NO NAUSEA ALL NIGHT. RESTING QUIETLY WITH EYES CLOSED AND REGULAR RESPIRATIONS AT THIS TIME. CALL LIGHT IN REACH.
--- NOTE | 2019-02-09 07:37 | NUR ---
PT RESTING SUPINE IN BED ALERT AND ORIENTED WATCHING THE NEWS ON TV. PT DENIES PAIN, NAUSEA OR SOB. IV K+ HUNG AND INFUSING -SEE EMAR. CALL LIGHT AND H2O IN REACH. FAMILY REMAINS AT BEDSIDE.
--- NOTE | 2019-02-09 08:01 | NUR ---
PT RESTING SUPINE IN BED ALERT AND ORIENTED WATCHING THE NEWS ON TV. PT DENIES PAIN, NAUSEA OR SOB. CALL LIGHT AND H2O IN REACH. FAMILY REMAINS AT BEDSIDE. ASSESSMENT COMPLETED.
--- NOTE | 2019-02-09 08:24 | NUR ---
PATIENT TOOK A SHOWER ON HEAVY THREADER. WASHED HER HAIR.
--- NOTE | 2019-02-09 08:25 | NUR ---
DID PATIENT'S BLOOD SURGAR CHECK.
--- NOTE | 2019-02-09 08:30 | NUR ---
PT DEPARTS WITH PREFORM MACHINE OPERATOR VIA BED AT THIS TIME. PT ALERT AND ORIENTED, SURGICAL WIP[place]OWN WITH CHLORHEXADINE WAS COMPLETED, LR WITH STRAIGHT TUBING HUNG.
--- NOTE | 2019-02-09 11:15 | NUR ---
02/09/19 1114 Elzbieta Campbell 1105 PT ARRIVED TO PACU ON 10L VIA MASK, RESP EVEN AND UNLABORED. VSS. PT NONAROUSABLE TO PAINFUL STIMULI AND PT MAINTAINING OWN AIRWAY. 1113 PT WOKE TO VERBAL STIMULI AND O2 MASK REMOVED. PT REORIENTED TO PACU AND PT FALLS EASILY BACK TO SLEEP, SMALL AMOUNT OF SNORING NOTED.
--- NOTE | 2019-02-09 11:50 | NUR ---
PT RESTING ARRIVED BACK FROM SURGERY VIA BED, CALL LIGHT AND H2O IN REACH. VSS. PT IS ALERT AND ORIENTED AND DENIES PAIN, SOB, NAUSEA OR ANY OTHER SYMPTOMS AT THIS TIME. NO NEEDS OR CONCERNS VOICED.
--- NOTE | 2019-02-09 12:11 | NUR ---
PT PROVIDED WITH JELLO AND ICE CHIPS PER HER REQEUST. CALL LIGHT AND H2O IN REACH. NO FURTHER NEEDS OR CONCERNS VOICED.
--- NOTE | 2019-02-09 12:41 | NUR ---
HAD PRAYER WITH PT JUST BEFORE SURGERY. WILL FOLLOW NEEDED
--- NOTE | 2019-02-09 14:07 | NUR ---
In to speak with pt. She is sleeping. Opens eyes and c/o of nausea. RN notified. Will check in tomorrow.
--- NOTE | 2019-02-09 14:26 | NUR ---
PT ASSSITED UP TO RESTROOM AND BACK TO BED WITH 1PA. PT TOLERATED WELL WITH SLOW BUT STEADY GAIT. PT RESTING SUPIEN IN BED REPORTS 8/10 BURNING PAIN TO EPIGASTRIC AREA. PRN IV MORPHINE ADMINISTERED PER PT REQUEST. CALL LIGHT AND H2O IN REACH. VSS ON RA. FAMILY AT BEDSIDE. CALL LIGHT AND ICE CHIPS IN REACH. NO FURTHER NEEDS OR CONCERNS VOICED.
--- NOTE | 2019-02-09 15:01 | NUR ---
PT REPORTS PAIN OF 7/10 TO EPIGASTRIC REGION. PT REQUESTED AND RECEIVED 2MG IV MORPHINE -SEE EMAR. CALL LIGHT AND H2O IN REACH. NO FURTHER NEEDS OR CONCERNS VOICED. RR 14 EVEN AND UNLABORED.
--- NOTE | 2019-02-09 16:48 | NUR ---
PT RESTING SUPINE IN BED, EYES CLOSED AND RESPRIATIONS EVEN AND UNLABORED. CALL LIGHT AND H2O IN REACH. PT APPEARS TO BE SLEEPING COMFORTABLY. RR14.
--- NOTE | 2019-02-09 18:40 | NUR ---
PT REPORTS 8/10 PAIN TO EPIGASTRIC REGION, DSGS REMAIN UNCHANGED COMPARED TO WHEN PT RETURNED FROM OR. PT UP TO RESTROOM WITH SBA TO VOID AND VOIDS 950MLS CLEAR YELLOW URINE. PT BACK TO BED WITH SBA. IVF CONTINUES TO INFUSE AT 75ML/HR. PRN IV OPIOD ADMINISTERED PER PT REQUEST -SEE EMAR. CALL LIGHT AND H2O IN REACH. NO FURTHER NEEDS OR CONCERNS VOICED.
--- NOTE | 2019-02-09 19:09 | NUR ---
RECEIVED REPORT FROM SALIMA KERNS. pt RESTING WITH EYES CLOSED, WOKE BRIEFLY. WHITEBOARD UPDATED. CALL LIGHT WITHIN REACH.
--- NOTE | 2019-02-09 20:00 | NUR ---
ALUMINA REFINERY OPERATOR IN ROOM TO DO VITALS. pt RESTING IN BED, DROWSY. MEDICATIONS GIVEN (SEE MAR). QUESTIONS ANSWERED. pt RATED PAIN "OKAY RIGHT NOW" INSTRUCTED TO CALL IF PAIN INCREASES. CALL LIGHT WITHIN REACH.
--- NOTE | 2019-02-09 22:13 | NUR ---
pt REQUESTED PRN PAIN MEDS FOR 08/04. pt REPORTED THAT THE PAIN WAS "NOT TERRIBLE BUT I REALLY DON'T WANT IT TO GET UP TO AN 8 AGAIN" PRN PAIN MED GIVEN (SEE MAR). pt IS ATTEMPTING TO SLOWLY EAT JELLO. ASSESSMENT DONE. CALL LIGHT WITHIN REACH.
--- NOTE | 2019-02-09 23:23 | NUR ---
ROUNDED ON pt. RESTING WITH EYES CLOSED, RESPIRATIONS REGULAR AND UNLABORED, RATE = 12. CALL LIGHT WITHIN REACH.
--- NOTE | 2019-02-10 01:28 | NUR ---
ROUNDED ON pt. RESTING WITH EYES CLOSED, RESPIRATIONS REGULAR AND UNLABORED. CALL LIGHT WITHIN REACH.
--- NOTE | 2019-02-10 01:40 | NUR ---
PHYSICIAN ASSISTANT SURGERY IN ROOM TO DO VITALS. ASSESSMENT DONE. MEDICATION GIVEN (SEE MAR). pt DROWSY, DID NOT WANT TO VOID AT THIS TIME. STATED PAIN IS "OKAY" NO REQUESTS. CALL LIGHT WITHIN REACH.
--- NOTE | 2019-02-10 04:27 | NUR ---
ROUNDED ON pt. RESTING WITH EYES CLOSED, RESPIRATIONS REGULAR AND UNLABORED. RATE = 12. CALL LIGHT WITHIN REACH.
--- NOTE | 2019-02-10 06:33 | NUR ---
pt RESTED MOST OF SHIFT. PRN IV PAIN MEDS X1. PRN PO MEDS X1. TOLERATING JELLO AND PUDDING. SBA. VOIDING WELL. ACCU CHECK WITH SS. DAILY WEIGHT. IVF INFUSING. NO NAUSEA. USES CALL LIGHT APPROPRIATELY.
--- NOTE | 2019-02-10 06:43 | OR ---
[facility] [address], [place] [address] Signed DATE OF OPERATION: 02/09/2019 SURGEON: Anushka Love MD PREOPERATIVE DIAGNOSIS: Chronic acalculous cholecystitis. POSTOPERATIVE DIAGNOSES: 1. Chronic acalculous cholecystitis with sludge. 2. Cholesterolosis. PROCEDURE: Laparoscopic cholecystectomy with intraoperative cholangiogram. ESTIMATED BLOOD LOSS: None. FINDINGS: Luis had some mild sludge in the neck of the gallbladder and in the proximal portion of the cystic duct. She also had significant cholesterolosis. She had inflammatory changes of the fat to 3/4th of the gallbladder. INDICATIONS: Luis is a 68-year-old diabetic female, who has had trouble in the last few years with right upper quadrant abdominal pain and epigastric abdominal pain with nausea and vomiting. Sometimes it is worse when she eats and other times not. Her previous evaluation including ultrasound of the gallbladder, HIDA scan, and a CT scan of the abdomen and pelvis were not particularly concerning a few years ago. More recently though her symptoms persisted and so she ended up in the emergency room. She has had upper and lower endoscopy and that was unremarkable other than some very mild inflammatory changes. She was found to be rather significantly anemic on her ER visit and so she was admitted to our internal medicine service. We repeated the upper endoscopy and it was not particularly concerning. We went ahead and did a HIDA scan and sure enough it reproduced her symptoms. I was asked then to remove her gallbladder as a general surgeon. I had met with Luis and her son. We had a long discussion regarding her current findings. We talked about diabetes relative to gallbladder disease. We also reviewed the location of function of the gallbladder. They understand laparoscopic versus open cholecystectomy. We also reviewed the expected intraop and postop course. There is risk to surgery including not limited to bleeding, infection, scarring, change in contour of the skin, damage to bowel, damage to the main bile duct, incisional Electronically Signed By: ANUSHKA LOVE MD 02/10/19 0643 PATIENT NAME: LUIS MIGUEL ANN OPERATIVE REPORT DATE OF : 48 REPORT #: [id number] PHYSICIAN: ANUSHKA LOVE MD PCP: ESSIE DENTON PA-C REPORT IS CONFIDENTIAL AND NOT TO BE RELEASED WITHOUT AUTHORIZATION [facility] [address] [place] [address] Signed hernias, the inability to relieve all her symptoms, and other unforeseen comorbidities. She has expressed understanding and wished to proceed. PROCEDURE NOTE: Luis was taken into our operating room and placed in a supine position under general endotracheal tube anesthesia. She was given preoperative antibiotics along with subcutaneous heparin. SCDs were utilized. She was prepped and draped in the usual sterile fashion. All trocars were placed in usual positions under direct visualization of the camera without difficulty. The gallbladder was grasped and elevated in the right upper quadrant. The findings are as above. Multiple pictures were taken throughout for photodocumentation. We took a few minutes to carefully bring the fat down off the gallbladder all the way down the triangle of Calot. The cystic artery was secured with a clip and divided. We introduced our intraoperative cholangiocatheter into the cystic duct. The intraoperative cholangiogram was unremarkable. We did see a little sludge that we milked out of the cystic duct. We then secured the cystic duct stump with a PDS Endoloop and 2 clips were placed on the cystic duct stump to romeo its location. After this, the gallbladder was removed from the gallbladder fossa with the help of the cautery and placed into an EndoCatch bag. We used our laparoscopic suturing device to pass 0 Vicryl suture on either side of the fascia of the subxiphoid trocar site. This was tied down to close this fascia primarily. After this, all the gas was allowed to escape and all the trocars removed along with the gallbladder. The gallbladder was passed off the table to our circulating nurse. It was opened on the back table and pictures were taken for photodocumentation. She clearly had significant cholesterolosis. We then closed the fascia of the supraumbilical trocar site with interrupted [id number] and simple 0 Vicryl sutures. Local anesthetic was injected into all trocar sites. Each trocar site was irrigated and suctioned out until clear. The skin and dermis of each trocar site were closed with interrupted 3-0 subcuticular Monocryl sutures. Dry gauze and tape were applied to all incisions. Luis was then awakened from her anesthesia, extubated in the OR, and taken to recovery room in stable condition. Anushka Love MD ALB/MODL /[id number] Electronically Signed By: ANUSHKA LOVE MD 02/10/19 0643 PATIENT NAME: LUIS MIGUEL ANN OPERATIVE REPORT DATE OF : 48 REPORT #: [id number] PHYSICIAN: ANUSHKA LOVE MD PCP: ESSIE DENTON PA-C REPORT IS CONFIDENTIAL AND NOT TO BE RELEASED WITHOUT AUTHORIZATION [facility] [address] [place] [address] Signed cc: MD Essie Novak PA-C Copies: ANUSHKA LOVE MD, CHLOE K PA-C ~ Electronically Signed By: ANUSHKA LOVE MD 02/10/19 0643 PATIENT NAME: LUIS MIGUEL ANN OPERATIVE REPORT DATE OF : 48 REPORT #: [id number] PHYSICIAN: ANUSHKA LOVE MD PCP: ESSIE DENTON PA-C REPORT IS CONFIDENTIAL AND NOT TO BE RELEASED WITHOUT AUTHORIZATION
--- NOTE | 2019-02-10 07:50 | NUR ---
PATIENT RESTING IN BED. PATIENT REFUSED TO ORDER BREAKFAST TODAY. PATIENT COMPLAINS ABOUT NAUSEA. RN NOTIFIED. CALL LIGHT WITHIN REACH. NO OTHER NEEDS AT THIS TIME
--- NOTE | 2019-02-10 08:04 | NUR ---
PT RESTING IN SEMIFOWLERS POSITION IN BED ALERT AND ORIENTED REPORTS SOME "UPSET STOMACHE". PT DENIES PAIN STATES "THE PAIN IS BETTER NOW". PRN IV ANTIEMETIC ADMINISTERED IV PER PT REQUEST. PT ASSESSMENT COMPLETED. CALL LIGHT AND H2O IN REACH. PT DENIES FURTHER NEEDS OR CONCERNS.
--- NOTE | 2019-02-10 09:57 | NUR ---
PATIENT RESTING IN BED. VITAL SIGNS AND I&O DONE. LOW DYASTOLIC BLOOD PRESSURE. RN NOTIFIED. CALL LIGHT WITHIN REACH. NO OTHER NEEDS AT THIS TIME
--- NOTE | 2019-02-10 10:55 | NUR ---
PT RESTING IN SEMIFOWLERS POSITION IN BED ALERT AND ORIENTED, CALL LIGHT AND H2O IN REACH. NO NEEDS OR CONCERNS VOICED. PT DECLINES WALK AT THIS TIME, AGREES TO USE CALL LIGHT WHEN SHE FEELS READY TO AMBULATE.
--- NOTE | 2019-02-10 11:14 | NUR ---
PATIENT RESTING IN BED. PATIENT IS GOING TO TAKE A SHOWER. IV WRAPPED. CALL LIGHT WITHIN REACH. NO OTHER NEEDS AT THIS TIME
--- NOTE | 2019-02-10 13:13 | NUR ---
PATIENT RESTING IN BED. VITAL SIGNS AND I&O DONE. PATIENT DID NOT VOID DURING THIS PERIOD. LOW DYASTOLIC BLOOD PRESSURE. RN NOTIFIED. CALL LIGHT WITHIN REACH. NO OTHER NEEDS AT THIS TIME
--- NOTE | 2019-02-10 13:26 | NUR ---
PT RESTING IN SEMIFOWLERS POSITION IN BED, CALL LIGHT AND H2O IN REACH. SCHEDULED MEDS ADMINISTERED. ASSESSMENT COMPLETED. PT DENIES NEEDS OR CONCERNS. ENCOURAGED PT TO DEEP BREATH AND COUGH AND TO USE IS 10X PER HOUR WHILE AWAKE. PT DECLINES WALK AT THIS TIME.
--- NOTE | 2019-02-10 14:37 | NUR ---
PT REPORTS NAUSEA PRN IV ZOFRAN ADMINISTERED. CALL LIGHT AND H2O IN REACH. NO FURTHER NEEDS OR CONCERNS VOICED.
--- NOTE | 2019-02-10 15:12 | NUR ---
PATIENT VOICED SHE WAS HAVING ABDOMINAL PAIN, AND THE NURSE SUGGESTED A WALK, WE WALKED ABOUT HALF A LAP
--- NOTE | 2019-02-10 15:47 | NUR ---
PT REPORTS NAUSEA PRN IV COMPAZINE ADMINISTERED. CALL LIGHT AND H2O IN REACH. NO FURTHER NEEDS OR CONCERNS VOICED.
--- NOTE | 2019-02-10 17:48 | NUR ---
PATIENT RESTING IN BED. VITAL SIGNS AND I&O DONE. HIGH SYSTOLIC BLOOD PRESSURE. RN NOTIFIED. PATIENT GOES TO USE BATHROOM. ONE PERSON ASSISTING. PATIENT BACKS TO BED. WARM BLANKET PROVIDED. PATIENT ASKS FOR PAIN MEDICINE. RN NOTIFIED. CALL LIGHT WITHIN REACH NO OTHER NEEDS AT THIS TIME
--- NOTE | 2019-02-10 17:58 | NUR ---
PT DECLINED PO POTASSIUM STATES "I CAN'T TAKE IT IT MAKES MY STOMACH UPSET." CALL LIGHT AND H2O IN REACH. PT DENIES FURTHER NEEDS OR CONCERNS STATES CURRENTLY NAUSEA AND PAIN IS TOLERABLE.
--- NOTE | 2019-02-10 19:17 | NUR ---
RECEIVED REPORT FROM SALIMA KERNS. pt RESTING WITH EYES CLOSED, RESPIRATIONS REGULAR AND UNLABORED. CALL LIGHT WITHIN REACH. WHITEBOARD UPDATED.
--- NOTE | 2019-02-10 19:55 | EKG ---
[facility] [address] [facility] [place] [address] Signed Normal sinus rhythm with sinus arrhythmia RSR' or QR pattern in V1 suggests right ventricular conduction delay Nonspecific ST abnormality Abnormal ECG No previous ECGs available Confirmed by GARY MALIK MD ([id number]) on 02/10/2019 7:55:31 PM Electronically Signed By: GARY MALIK MD 02/10/19 1955 PATIENT NAME: LUIS MIGUEL Electrocardiogram DATE OF : 48 PHYSICIAN: GARY MALIK MD REPORT #: [id number] REPORT IS CONFIDENTIAL AND NOT TO BE RELEASED WITHOUT AUTHORIZATION
--- NOTE | 2019-02-10 21:58 | NUR ---
VITALS AND I&OS DONE AND CHARTED. BLOOD SUGAR DONE WELL. FRESH ICE GIVEN FOR HER SODA. BEDSIDE TABLE AND CALL LIGHT IN REACH.
--- NOTE | 2019-02-10 22:14 | NUR ---
ASSESSMENT DONE. REMOVED DRESSINGS PER ORDER, EDGES WELL APPROXIMATED. MEDICATION GIVEN (SEE MAR). DENIES NAUSEA AT THIS TIME. REPORTED PAIN IS "JUST FINE RIGHT NOW." NO REQUESTS AT THIS TIME. CALL LIGHT WITHIN REACH.
--- NOTE | 2019-02-11 00:13 | NUR ---
ROUNDED ON pt. HAVING TROUBLE SLEEPING BECAUSE "I SLEPT ALL DAY" UP TO VOID. AMBULATING IN HUERTA.
--- NOTE | 2019-02-11 03:04 | NUR ---
ROUNDED ON pt. RESTING WITH EYES CLOSED, RESPIRATIONS REGULAR. pt WOKE TO MOVEMENT. NEW BAG OF IVF HUNG. pt REPORTED FEELING HUNGRY, CRACKERS PROVIDED. ASSESSMENT DONE. NO FURTHER REQUESTS AT THIS TIME. CALL LIGHT WITHIN REACH.
--- NOTE | 2019-02-11 05:09 | NUR ---
ROUNDED ON pt. RESTING WITH EYES CLOSED, RESPIRATIONS REGULAR AND UNLABORED. CALL LIGHT WITHIN REACH.
--- NOTE | 2019-02-11 05:28 | NUR ---
VITALS DONE AND CHARTED. EMPTIED GARBAGES. BEDSIDE TABLE AND CALL LIGHT IN REACH.
--- NOTE | 2019-02-11 06:47 | NUR ---
pt SECOND HALF OF SHIFT. UP TO AMBULATE X1. REFUSED PAIN MEDICATION. DENIED NAUSEA. LAP SITES X4, EDGES WELL APPROXIMATED. SBA. USES CALL LIGHT APPROPRIATELY.
--- NOTE | 2019-02-11 07:20 | NUR ---
PT RESTING SUPINE IN BED EYES CLOSED AND RESPIRATIONS EVEN AND UNLABORED. PT APPEARS TO BE SLEEPING COMFORTABLY. CALL LIGHT AND H2O IN REACH. REPORT RECEIVED FROM SALIMA JIMENEZ.
--- NOTE | 2019-02-11 08:15 | NUR ---
PATIENT IN BED RESTING. MORNING ROUTINE DONE. WARM WASHCLOTH OFFERED. CALL LIGHT WITHIN REACH. NO FURTHER NEEDS AT THIS TIME.
--- NOTE | 2019-02-11 08:54 | NUR ---
IN TO SEE PATIENT, PT SITTING UP IN BED WATCHING TV. PT ALERT AND ORIENTED. ASSESSMENT COMPLETED. AM MEDS ADMINISTERED. CALL LIGHT AND H2O IN REACH. NO NEED OR CONCERNS VOICED.
[2019-02-11] MEDS ORDERED: LISINOPRIL2.5 MG PO (09:09)
[2019-02-11] MEDS ORDERED: HYDROCODON-ACE1 EA10 PO (09:10)
[2019-02-11] MEDS ORDERED: POLYETHYLENE GL17 GM PO (09:10)
[2019-02-11] MEDS ORDERED: METFORMIN HCL500 MG PO (09:10)
--- NOTE | 2019-02-12 13:46 | PATH ---
[facility] [address] [place], [place] [address] Signed SPECIMEN(S): A GALLBLADDER SPECIMEN SOURCE: A. GALLBLADDER CLINICAL HISTORY: Cholecystitis, epigastric pain. FINAL PATHOLOGIC DIAGNOSIS: Gallbladder, cholecystectomy: - Chronic cholecystitis with cholesterolosis. NAL:vlg:C2NR MICROSCOPIC EXAMINATION: Histologic sections of all submitted blocks are examined by light microscopy. These findings, together with the gross examination, support the pathologic diagnosis. GROSS DESCRIPTION: The specimen, labeled "RE, gallbladder," is received in formalin and consists of Specimen: Previously opened gallbladder. Dimensions: 8.2 x 3.0 x 2.1 cm. Serosa: Meza-green and smooth. Cystic Duct: Unobstructed. Calculi: Not grossly identified. Mucosa: Green-brown and velvety. Wall thickness: 0.3 cm. Lymph node: No pericystic lymph nodes are grossly identified. Additional: None. Grants Assistant sections are submitted in cassette (A1). AM (under the direct supervision of a pathologist) The Gross Description was prepared using a voice recognition system. The report was reviewed for accuracy; however, sound-alike word errors, addition and/or deletions may occur. If there is any question about this report, please contact Client Services. PERFORMING LABORATORY: The technical component was performed by [facility] [employer], [address] [place] [id number] (Compliance Field Technician: Mery Serrato MD; CLIA# [id number]). Professional interpretation was performed by PATIENT NAME: MIGUEL,JARON PATHOLOGY DATE OF : 48 REPORT #: [id number] PHYSICIAN: ANGIE PATHOLOGY PCP: DANYELL DENTON PA-C REPORT IS CONFIDENTIAL AND NOT TO BE RELEASED WITHOUT AUTHORIZATION [facility] [address] [place], [place] [address] Signed [facility], [facility], [address] [facility], [facility], [place], [place] [address] (Compliance Field Technician: Andrew Singleton MD; CLIA# [id number]). Diagnostician: Gale Cason MD Pathologist Electronically Signed 02/12/2019 Copies: ~ PATIENT NAME: LUIS MIGUEL ANN PATHOLOGY DATE OF : 48 REPORT #: [id number] PHYSICIAN: ANGIE PATHOLOGY PCP: DANYELL DENTON PA-C REPORT IS CONFIDENTIAL AND NOT TO BE RELEASED WITHOUT AUTHORIZATION
[2019-02-15] MEDS ORDERED: LANTUS100 UNITS/ SUB-Q (13:22)
[2019-02-15] MEDS ORDERED: GLUCOPHAGE1000 MG PO (13:22)
[2019-02-15] MEDS ORDERED: NORCO 5-325 TA1 EACH PO (18:01)
== END 2019-02-11 10:38 | disposition home or self-care (01) | DRG 419 ==
LOC: ED 15:09 → MS 15:11 → CCU 15:11 → MS 02-06 05:12
PROVIDERS: Colon & Rectal Surgery; ADMIT Internal Medicine
PROC: 0DB48ZX Excision of Esophagogastric Junction, Via Natural or Artificial Opening Endoscopic, Diagnostic (ICD-10-PCS; 2019-02-07)
PROC: 0DB78ZX Excision of Stomach, Pylorus, Via Natural or Artificial Opening Endoscopic, Diagnostic (ICD-10-PCS; 2019-02-07)
PROC: 30233N1 Transfusion of Nonautologous Red Blood Cells into Peripheral Vein, Percutaneous Approach (ICD-10-PCS; 2019-02-08)
PROC: BF101ZZ Fluoroscopy of Bile Ducts using Low Osmolar Contrast (ICD-10-PCS; 2019-02-09)
PROC: 0FT44ZZ Resection of Gallbladder, Percutaneous Endoscopic Approach (ICD-10-PCS; principal; 2019-02-09 10:00)
DX: K81.2 Acute cholecystitis with chronic cholecystitis (principal); K29.70 Gastritis, unspecified, without bleeding; K44.9 Diaphragmatic hernia without obstruction or gangrene; E11.9 Type 2 diabetes mellitus without complications; I10 Essential (primary) hypertension; D50.9 Iron deficiency anemia, unspecified; E87.6 Hypokalemia; M47.812 Spondylosis without myelopathy or radiculopathy, cervical region; Z88.1 Allergy status to other antibiotic agents; Z88.5 Allergy status to narcotic agent; Z88.8 Allergy status to other drugs, medicaments and biological substances; Z79.82 Long term (current) use of aspirin; Z79.4 Long term (current) use of insulin; Z79.899 Other long term (current) drug therapy
CPT/HCPCS: 00790; 36415; 74300; 78227; 80048; 80053; 82728; 83540; 83690; 83735; 84100; 84134; 84466; 84484; 85025; 86677; 86850; 86900; 86901; 86920; 88304; 88305; 88342; 94760; 96361; 96374; 96375; 99284-25; A9537; C9113; J0131; J0330; J0690; J0780; J1100; J1650; J1720; J1815; J1885; J2250; J2270; J2405; J2550; J2704; J2765; J2805; J3010; J3475; J3480; J7030; J7060; J7121; P9016; Q9967

== ENCOUNTER 2020-05-01 16:59 | Emergency (ER) | payer MEDICARE ==
[~2020-05-01] VITALS: Ht 167.6 cm; Wt 79.6 kg
[~2020-05-01 16:59] MED LIST changes: +ALENDRONATE SOD70 MG PO; +GLUCOPHAGE1000 MG PO; +HYDROCODON-ACE1 EA10 PO; +IRON325 M1 PO; +LISINOPRIL2.5 MG PO; +POLYETHYLENE GL17 GM PO; +VITAMIN C500 M1 PO
--- OUTSIDE RECORDS SUMMARY | 2020-05-01 17:02 | XMS ---
PreManage Notification: LUIS MIGUEL [employer] Person Events No recent Security Events currently on file CRITERIA MET - AYE-19 Pending Lab Results - [facility] - 2 Visits in 30 Days CARE PROVIDERS DANYELL DENTON Physician 11/07/2017-Current PHONE: [phone] [facility] has no Care Guidelines for this patient. Geremias VISIT COUNT (12 MO.) [address] [place] [address] Louise Galeano [address] [place] [address] TOTAL 3 NOTE: Visits indicate total known visits. ED/UCC VISIT TRACKING (12 MO.) 05/01/2020 17:00 KRISTA Everett TYPE: Emergency COMPLAINT: - N/V, WEAKNESS [facility] DIAGNOSES: - abd pain - Abdominal Pain - Gastroparesis - Emesis - Nausea 04/28/2020 22[facility] DIAGNOSES: - Epigastric Pain - abd pain - Epigastric pain INPATIENT VISIT TRACKING (12 MO.) No inpatient visits to display in this time frame [email or web address]
[2020-05-01] MEDS ORDERED: TYLENOL325 MG PO (17:28)
[2020-05-01] MEDS ORDERED: ALENDRONATE SOD70 MG PO (17:28)
[2020-05-01] MEDS ORDERED: VITAMIN C500 M3 PO (17:29)
[2020-05-01] MEDS ORDERED: B COMPLEX1 EACH PO (17:29)
[2020-05-01] MEDS ORDERED: ELIQUIS5 MG PO (17:29)
[2020-05-01] MEDS ORDERED: CHOLECALCIFEROL1 GM MISC (17:30)
[2020-05-01] MEDS ORDERED: BASAGLAR K100 UNIT/1 SQ (17:30)
[2020-05-01] MEDS ORDERED: FISH OIL + D31 EACH PO (17:31)
[2020-05-01] MEDS ORDERED: BLUE TUBE30 GM TP (17:32)
[2020-05-01] MEDS ORDERED: METOPROLOL SUCC25 MG PO (17:33)
[2020-05-01] MEDS ORDERED: REGLAN5 MG PO (17:33)
[2020-05-01] MEDS ORDERED: PROMETHEGAN25 MG PR (17:33)
[2020-05-01] MEDS ORDERED: OMEPRAZOLE20 MG PO (17:34)
[2020-05-01] MEDS ORDERED: PROMETHAZINE HC25 M1 PO (17:34)
[2020-05-01] MEDS ORDERED: SALONPAS PATCH1 EAC1 TOP (17:35)
[2020-05-01] MEDS ORDERED: CARAFATE1 GM PO (21:54)
[2020-05-01] MEDS ORDERED: PRILOSEC OTC20 MG PO (21:54)
== END 2020-05-01 23:36 | disposition home or self-care (01) ==
LOC: ED 16:59
DX: R10.13 Epigastric pain (principal); E86.0 Dehydration; R11.0 Nausea; E11.9 Type 2 diabetes mellitus without complications; I10 Essential (primary) hypertension; Z87.891 Personal history of nicotine dependence; Z88.1 Allergy status to other antibiotic agents; Z88.5 Allergy status to narcotic agent; Z88.8 Allergy status to other drugs, medicaments and biological substances; Z79.899 Other long term (current) drug therapy; Z79.84 Long term (current) use of oral hypoglycemic drugs
CPT/HCPCS: 74022; 80053; 81001; 83690; 84484; 85025; 96374; 96375; 99284-25; C9113; J1200; J2405; J2550; J7030; J7121

== ENCOUNTER 2020-05-05 09:39 | Observation (INO) | payer MEDICARE ==
[~2020-05-05] VITALS: Ht 167.6 cm; Wt 83.2 kg
[~2020-05-05 09:39] MED LIST changes: +B COMPLEX1 EACH PO; +BASAGLAR K100 UNIT/1 SQ; +BLUE TUBE30 GM TP; +CARAFATE1 GM PO; +CHOLECALCIFEROL1 GM MISC; +ELIQUIS5 MG PO; +FISH OIL + D31 EACH PO; +METOPROLOL SUCC25 MG PO; +PRILOSEC OTC20 MG PO; +PROMETHAZINE HC25 M1 PO; +PROMETHEGAN25 MG PR; +REGLAN5 MG PO; +SALONPAS PATCH1 EAC1 TOP; +TYLENOL325 MG PO; +VITAMIN C500 M3 PO
--- OUTSIDE RECORDS SUMMARY | 2020-05-05 09:42 | XMS ---
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 Geremias VISIT COUNT (12 MO.) [address] [place] [address] TOTAL 4 NOTE: Visits indicate total known visits. ED/UCC VISIT TRACKING (12 MO.) 05/05/2020 09:39 KRISTA Everett TYPE: Emergency COMPLAINT: - DIZZINESS 05/01/2020 17:00 KRISTA Everett TYPE: Emergency COMPLAINT: - WEAKNESS 04/30/2020 10:26 [facility] Louise BURDICK TYPE: Emergency DIAGNOSES: - abd pain - Abdominal Pain - Gastroparesis - Emesis - Nausea 04/28/2020 22:11 [facility] Waleska BURDICK TYPE: Emergency DIAGNOSES: - Epigastric Pain - abd pain - Epigastric pain INPATIENT VISIT TRACKING (12 MO.) No inpatient visits to display in this time frame [email or web address]
[2020-05-05] MEDS ORDERED: METOPROLOL TART25 MG PO (13:00)
--- NOTE | 2020-05-05 13:37 | EKG ---
[facility] [address] [facility] [place] [address] Signed Atrial fibrillation with rapid ventricular response RSR' or QR pattern in V1 suggests right ventricular conduction delay ST depression, consider subendocardial injury Abnormal ECG When compared with ECG of 08-FEB-2019 09:18, Atrial fibrillation has replaced Sinus rhythm ST more depressed in Anterior leads Confirmed by GARY MALIK MD ([id number]) on 05/05/2020 1:36:45 PM Electronically Signed By: GARY MALIK MD 05/05/20 1337 PATIENT NAME: LUIS MIGUEL ANN Electrocardiogram DATE OF : 48 PHYSICIAN: GARY MALIK MD REPORT #: [id number] REPORT IS CONFIDENTIAL AND NOT TO BE RELEASED WITHOUT AUTHORIZATION
--- NOTE | 2020-05-05 16:20 | NUR ---
PT ARRIVED TO [facility] VIA STRETCHER. PT IS ALERT AND ORIETNED. TRANSFERS SBA TO BED. LR WITH 40K STARTED. VITALS TAKEN AND STABLE. MEDICAITONS GIVEN. WATER PROVIDED. PT DENIES NAUSEA BUT REPOS ABDOMINAL PAIN AFTER TAKING CARAFATE. NO OTHER CONCERNS.
--- NOTE | 2020-05-05 16:30 | NUR ---
Spoke with Lsahon William who is well know to this RN. She lives in [facility] a 1 story house with 3 steps into home. She lives alone. He son francy near and checks on her. 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 She complains of several months of stomach pain. She states she has been sick and unable to drink for the last few days. She plans on discharge to home when cleared med- ically.
--- NOTE | 2020-05-05 17:00 | NUR ---
PT LYING IN BED ON RIGHT SIDE WITH SON IN ROOM. CLEAR LIQUID TRAY PROVIDED, 1 UNIT OF INSULIN PER SLIDING SCALE. PT W/O EMISIS OR C/O NAUSEA. DENIES FURTHER NEEDS. CALL LIGHT IN REACH.
--- NOTE | 2020-05-05 19:57 | NUR ---
REPORT RECEIVED FROM CHINMAY RN. PT SLEEPING IN BED AT THIS TIME, SON ALSO IN ROOM SLEEPING AT BEDSIDE COUCH. PT IN NO APPARENT DISTRESS, RESPIRATIONS NOTED, PT LEFT UNDISTURBED. IVF INFUSING ORDERED. WILL CONTINUE PLAN OF CARE.
--- NOTE | 2020-05-05 20:00 | NUR ---
CALL LIGHT ANSWERED. SBA TO RESTROOM. pt INSTRUCTED TO USE CALL LIGHT WHEN FINISHED. pt STATES "I JUST FEEL CRUMMY" NO C/O NAUSEA OR PAIN. IVF INFUSING WNL.
--- NOTE | 2020-05-05 20:21 | NUR ---
PT CALLED FOR ASSISTANCE BACK TO BED FROM BATHROOM. SHE IS NOW SITTING AT EDGE OF BED WITH FAMILY MEMBER. HE STATES HE WILL HELP HER GET LEGS BACK IN BED BEFORE LEAVING. CALL LIGHT IS CLOSE AND PT DENIES FURTHER NEEDS.
--- NOTE | 2020-05-05 20:51 | NUR ---
ASSISTED WITH VS, CBG WNL. pt STATES "I FEEL MUCH BETTER AFTER I WAS ABLE TO HAVE A BOWEL MOVEMENT". pt DENIES NEED FOR PRN MEDICATION. PRIMARY RN DAMASO IN ROOM ASSESSING pt.
--- NOTE | 2020-05-05 21:10 | NUR ---
AYAD PRIMARY RN SAID PT REQUESTED A SLEEP AID. SPOKE WITH DR MALIK AND NEW ORDERS RECEIVED FOR BENADRYL 25MG HSPRN FOR INSOMNIA. NO FURTHER ORDERS RECEIVED.
--- NOTE | 2020-05-05 21:30 | NUR ---
THIS RN IN TO ASSESS PT. PT LAYING IN BED AND IS AWAKE AND ALERT. IVF INFUSING ORDERED. PT REPORTS NO PAIN WHEN ASKED. PT STATES SHE NEEDS "MELATONIN AND TYLENOL PM" TO SLEEP WHEN ASKED IF SHE NEEDS ANYTHING. ASSESSMENT COMPLETE, IV SITES WNL AND PATENT. PT REPORTS NO FURTHER NEEDS WHEN ASKED. SALIMA HENDRICKS CALLED DR MALIK ABOUT MEDICATIONS TO SLEEP. NEW ORDERS PLACED FOR BENADRYL. CALL LIGHT WITHIN REACH, BED IN LOWEST POSITION, WILL CONTINUE PLAN OF CARE.
--- NOTE | 2020-05-05 21:38 | NUR ---
THIS RN IN TO PT'S ROOM TO ASK PT IF SHE WANTER HER PRN BENADRYL. PT STATES THAT SHE DOES NOT WANT IT AT THIS TIME. PT STATES SHE WILL USE THE CALL LIGHT WHEN SHES READY TO GO TO SLEEP. PT REPORTS NO FURTHER NEEDS WHEN ASKED, WILL CONTINUE PLAN OF CARE.
--- NOTE | 2020-05-05 21:55 | NUR ---
ASSISTED SALIMA LION. V/S AND I&O TAKEN AND RECORDED. BLOOD SUGAR CHECKED. CONFERENCE TRANSLATOR USED BLANKET.
--- NOTE | 2020-05-05 22:26 | NUR ---
IN ROOM TO ADMINISTER BENADRYL FOR SLEEP PER PT REQUEST. PT DENIES FURTHER NEEDS. CALL LIGHT IS CLOSE.
--- NOTE | 2020-05-06 00:17 | NUR ---
THIS RN IN TO ADMINSTER ORDERED MEDICATIONS TO PT. PT SLEEPING IN BED, RESPIRATIONS EVEN AND UNLABORED. PT WOKE BRIEFLY AND WENT BACK TO SLEEP AFTER MEDICATION WAS ADMINISTERED. PT REPORTS NO FURTHER NEEDS AND IS IN NO APPARENT DISTRESS. IVF INFUSING ORDERED, CALL LIGHT IN REACH, BED IN LOWEST POSITION, WILL CONTINUE PLAN OF CARE.
--- NOTE | 2020-05-06 02:19 | NUR ---
RESPONDED TO PT CALL LIGHT. PT REPORTS ABDOMINAL PAIN 10/10. PT IN BED RESTLESS AND GROANING. PT REFUSED PRN TYLENOL. PT ASSESSED, ABDOMEN SOFT, BOWEL TONES ACTIVE. VS STABLE. PT STATED SHE COULD NOT TAKE ORAL TYLENOL DUE TO HER ABDOMINAL PAIN. PT STATES PAIN FEELS IF HER "INTESTINES ARE TWISTING" AND DESCRIBED IT A CRAMP WITH NAUSEA. PT STATES THE PAIN IS WHAT WOKE HER UP. DR. MALIK CALLED AND UPDATED ON PT. NEW ORDERS GIVEN FOR PRN MORPHINE (SEE MAR). PRN MORPHINE ADMINISTERED ALONG WITH ZOFRAN PT COMPLAINED OF NAUSEA. HOT PACK ALSO GIVEN TO PT TO AID WITH PAIN. PT NOW LAYING IN BED AND STATES THAT HER PAIN HAS NOT SUBSIDED. ICE PACK PROVIDED FOR ABDOMEN. CALL LIGHT IN REACH, BED IN LOWEST POSITION, WILL CONTINUE PLAN OF CARE.
--- NOTE | 2020-05-06 02:54 | NUR ---
THIS RN IN TO CHECK ON PT. PT LAYING IN BED AWAKE AND ALERT. PT REPORTS THAT HER PAIN IS STILL PRESENT BUT IMPROVING. PT GIVEN ICE CHIPS PER HER REQUEST, PT STILL USING ICE PACK ON ABDOMEN. PT REPORTS NO FURTHER NEEDS AT THIS TIME. IVF INFUSING, CALL LIGHT ON BED WITHIN REACH, BED IN LOWEST POSITION, WILL CONTINUE PLAN OF CARE.
--- NOTE | 2020-05-06 03:33 | NUR ---
THIS RN IN TO ASSESS PT. PT WAS LAYING IN BED SLEEPING BUT WOKE UP TO ME ENTERING. PT STATES HER ABDOMINAL PAIN IS TOLERABLE NOW AND RATES IT AT A 4/10. PT STATES SHES BEEN ABLE TO GET REST NOW. PT DENIES HAVING ANY NAUSEA. PT REPORTS NO FURTHER NEEDS WHEN ASKED AND STATES SHE WILL BE GOING BACK TO SLEEP. CALL LIGHT IN REACH, BED IN LOWEST POSITION, IVF INFUSING, WILL CONTINUE PLAN OF CARE.
--- NOTE | 2020-05-06 05:05 | NUR ---
THIS RN IN DUE TO IV PUMP ALARMING. EXTRA VOLUME ADDED TO PUMP TO COMPLETE FLUID. PT LAYING IN BED SLEEPING, RESPIRATIONS EVEN AND UNLABORED. PT IN NO APPARENT DISTRESS AND WAS LEFT UNDISTURBED. WILL CONTINUE PLAN OF CARE. CALL LIGHT ON BED WITHIN REACH, BED IN LOWEST POSITION.
--- NOTE | 2020-05-06 06:05 | NUR ---
THIS RN IN TO ADMINISTER ORDERED MEDICATIONS. PT AWAKE IN BED GETTING HER LABS DRAWN. RN AYAD IN HANGING NEW BAG OF IVF. PT GIVEN ORDERED SUCRALAFATE. VS TAKEN AND ARE STABLE. PT UPDATED ON POC AND REMINDED OF NPO STATUS. PT REPORTS NO FURTHER NEEDS AND STATES SHE WILL BE GOING BACK TO SLEEP. CALL LIGHT IN REACH, BED IN LOWEST POSITION, WILL CONTINUE PLAN OF CARE.
--- NOTE | 2020-05-06 06:53 | NUR ---
PT SLEPT THROUGH MOST OF THE NIGHT BUT WOKE UP AT 0145 DUE TO 10/[address] MALIK CALLED, PRN MORPHINE ORDERED AND ADMINISTERED. PT GIVEN ZOFRAN FOR NAUSEA WELL. PAIN SUBSIDED OVERTIME AND PT SLEPT THROGH THE REST OF THE NIGHT. PT NOW NPO TO PREPARE FOR STUDY. IVF INFUSING AT THIS TIME. PO CARAFATE GIVEN EARLY.
--- NOTE | 2020-05-06 07:35 | NUR ---
REPORT RECEIVED. PT IN BED WITH HOB ELEVATED, ALERT AND ORIENTED. 4L NC IN PLACE. PT DENIES PAIN. STAND BY GAURD TO BATHROOM FOR 400ML VOID. PT AMBULATED INDEPENDENTLY AND GOT IN AND OUT OF BEDE W/O ASSISTANCE. PT DENIES NEEDS AT THIS TIME. CALL LIGHT IN REACH.
--- NOTE | 2020-05-06 07:38 | NUR ---
REPORT RECIEVED. PT LYING IN BED WITH EYES CLOSED AND HOB ELEVATED. RESPIRATIONS NON-LABORED. LR AT 85ML/HR INFUSING. CALL LIGHT IN REACH.
[2020-05-06] MEDS ORDERED: LISINOPRIL2.5 MG PO (08:20)
--- NOTE | 2020-05-06 09:16 | NUR ---
PT ASSESSMENT COMPLETE. SCHEDULED MEDICATION ADMINISTERED. ASSISTED PT TO BATHROOM WITH STAND MY ASISTANCE AND BACK. PT SITTING CHAIR WITH LEGS ELEVATED. SON AT CHAIR SIDE. PT STATES SHE IS VERY SLEEPY. HEATED BLANKET GIVEN. NO CONCERNS OR QUESTIONS. CALL LIGHT WITHIN REACH.
--- NOTE | 2020-05-06 09:45 | NUR ---
ASSESSMENT COMPLETED. PT ASSISTED TO BATROOM FOR VOID. ENCOURAGED TO SIT IN CHAIR FOR A WHILE. PT AGREEABLE. BOWEL TONES ACTIVE. LUNGS CLEAR. PT IS VERY TIRED AND WANTS TO SLEEP MORE IN CHAIR. PT IS ORIENTED X3. NO EDEMA. HEART SOUNDS REGULAR. SON AT BEDSIDE. CALL LIGHT IN REACH. STUDENT NURSE IN WITH PT.
--- NOTE | 2020-05-06 09:54 | NUR ---
PATIENT IN CHAIR, LINENS CHANGED. WARM BLANKET AND WASHCLOTH GIVEN. SON IN ROOM. VITALS AND I&O'S CHARTED. CALL LIGHT IN REACH. NO FURTHER NEEDS AT THIS TIME.
--- NOTE | 2020-05-06 10:00 | NUR ---
Spoke with Lindsay. Son is in the room. She is awaiting awaiting procedure. Kate would like assist with Advanced Directive and booklet taken to the room. She would also like assist with a will, encouraged to seek assist from a science consultant.
--- NOTE | 2020-05-06 10:26 | NUR ---
CALL LIGT ANSWERED. PT REQUESTED TO BRUSH HER TEETH. PT SITTING IN CHAIR LEGS ELEVATED. SON IN ROOM. NO OTHER CONCERNS. CALL LIGHT WITHIN REACH.
--- NOTE | 2020-05-06 10:32 | NUR ---
MATHEW IN NUCLEAR MEDICINE CALLED TO VERIFY CARAFATE WAS OKAY TO GIVE. MATHEW BARRAZA'D MEDICATION TO BE GIVEN WITH WATER.
--- NOTE | 2020-05-06 10:58 | NUR ---
PT SITTING IN CHAIR. ADMINISTERED CERAFATE MEDICATION. PT REQUESTED TO GET IN BED ASSISTED PT TO BED. HEAD AT 0 DEGREES. HEAD SLIGHTLY ELEVATED WITH PILLOWS. NO OTHER CONCERNS. SON AT BEDSIDE. CALL DAVID MEREDITH.
--- NOTE | 2020-05-06 13:14 | NUR ---
PT OFF TO IMAGING.
[2020-05-06] MEDS ORDERED: GLUCOPHAGE500 MG PO (15:41)
[2020-05-06] MEDS ORDERED: MIRALAX17 GM PO (15:44)
[2020-05-06] MEDS ORDERED: I-CAPS WITH LU1 EACH PO (15:46)
[2020-05-06] MEDS ORDERED: VITAMIN E400 UNI1 PO (15:46)
--- NOTE | 2020-05-06 15:47 | NUR ---
MED REC COMPLETE
--- NOTE | 2020-05-06 16:41 | NUR ---
KARISHMA MALIK. POC DISCUSSED. PT SITTING UP IN CHAIR. NO NEEDS AT THIS TIME.
--- NOTE | 2020-05-06 16:56 | EKG ---
[facility] [address] [place] [address] Signed Normal sinus rhythm ST \T\ T wave abnormality, consider anterior ischemia Abnormal ECG When compared with ECG of 05-MAY-2020 09:52, Sinus rhythm has replaced Atrial fibrillation Vent. rate has decreased BY 50 BPM T wave inversion now evident in Anterior leads Confirmed by GARY MALIK MD ([id number] on 05/06/2020 4:56:37 PM Electronically Signed By: GARY MALIK MD 05/06/20 1656 PATIENT NAME: LUIS MIGUEL ANN Electrocardiogram DATE OF : 48 PHYSICIAN: GARY MALIK MD REPORT #: [id number] REPORT IS CONFIDENTIAL AND NOT TO BE RELEASED WITHOUT AUTHORIZATION
--- NOTE | 2020-05-06 17:29 | NUR ---
LAB IN DRAWING BLOOD.
--- NOTE | 2020-05-06 18:14 | NUR ---
PATIENT SITTING UP IN CHAIR EATING DINNER. SON IN ROOM. VITALS AND I&O'S CHARTED. CALL LIGHT IN REACH. NO FURTHER NEEDS AT THIS TIME.
--- NOTE | 2020-05-06 19:00 | NUR ---
PT SBA TO AMBULATE OUT IN HALLS. TOELRATED WELL. TOLERATED DINNER W/O ABDOMINAL PAIN. BACK TO BED NOW. CALL LIGHT IN REACH.
--- NOTE | 2020-05-06 19:39 | NUR ---
REPORT RECEIVED FROM CHINMAY RN. PT AWAKE AND LAERT SITTING IN BEDSIDE CHAIR, IVF INFUSING. PT REPORTS NO NEEDS AT THIS TIME WHEN ASKED. WILL CONTINUE PLAN OF CARE.
--- NOTE | 2020-05-06 21:50 | NUR ---
THIS RN IN TO ASSESS PT AND ADMINISTER SCHEDULED MEDICATIONS. IVF INFUSING ORDERED. PT GIVEN SCHEDULED MEDICATIONS AND 3 UNITS OF INSULIN PER SLIDING SCALE. PRN MELATONIN ALSO GIVEN PER PT REQUEST FOR SLEEP. PT COMPLAINS OF NO PAIN AT THIS TIME. VS STABLE, HR RANGED FROM 58-62. PT ASSESSED, IV PATENT. PT REPORTS NO FURTHER NEEDS WHEN ASKED. CALL LIGHT IN REACH, BED IN LOWEST POSITION, WILL CONTINUE PLAN OF CARE.
--- NOTE | 2020-05-06 22:20 | NUR ---
PT INFORMED ME THAT SHE WANTED TO TAKE A SHOWER. IVF STOPPED MOMENTARILY, BENITA CONDE IN TO ASSIST PT WITH SHOWER. WILL CONTINUE PLAN OF CARE.
--- NOTE | 2020-05-06 23:11 | NUR ---
PATIENT TOOK SHOWER INDEPENDENTLY. BED LINEN CHANGED. PATIENT IS BACK IN BED. SON IN THE ROOM.
--- NOTE | 2020-05-06 23:30 | NUR ---
THIS RN IN TO ASSESS PT'S IV FLUIDS. PT LAYING IN BED AWAKE, SON IN ROOM WITH PT. PT STATES SHE FEELS IF SHE HAS TO "BURP A LOT" AND SAT UP. PT THEN STATED SHE HAD ABDOMINAL DISCOMFORT AND NAUSEA. PT REFUSED PO TYLENOL BUT WAS WILLING TO TAKE IV ZOFRAN. PRN ZOFRAN ADMINISTERED FOR PT'S NAUSEA. PT REPORTED NO FURTHER NEEDS WHEN ASKED. PT NOW IN BED ON SIDE, SON GIVING PT A BACK MASSAGE. IVF INFUSING, BED IN LOWEST POSITION, CALL LIGHT IN REACH, WILL CONTINUE PLAN OF CARE.
--- NOTE | 2020-05-07 00:41 | NUR ---
THIS RN IN TO HANG NEW BAG OF IVF. PT SITTING UP IN BED AWAKE WITH SON AT SIDE MASSAGING BACK. PT STATES SHE STILL HAS ABDOMINAL DISCOMFORT AND NAUSEA. PT. STATES DISCOMFORT FEELS IF SHE HAS GAS IN THE MID EPIGASTRIC REGION. PT OFFERED PRN NAUSEA MEDICATION AND PT STATED YES. PRN COMPAZINE ADMINISTERED. PT THEN ASSISTED TO BATHROOM. PT STATES SHE WILL SIT ON THE TOILET FOR A WHILE AND STATED I COULD LEAVE. PT SITTING ON TOILET WITH SON IN BATHROOM. PT REPORTS NO FURTHER NEEDS WHEN ASKED, WILL CONTINUE PLAN OF CARE.
--- NOTE | 2020-05-07 00:50 | NUR ---
THIS RN IN TO CHECK ON PT. PT NOW BACK IN BED AWAKE. PT STATES SHE STILL FEELS UNCOMFORTABLE. PT STATED SHE WAS ABLE TO VOID AND HAVE A SMALL BM, BOTH ARE UNMEASURED SHE FLUSHED THEM. PT REPORTS NO FURTHER NEEDS WHEN ASKED, IVF INFUSING ORDERED, CALL LIGHT IN REACH, BED IN LOWEST POSITION, SON IN ROOM WITH PT. WILL CONTINUE PLAN OF CARE.
--- NOTE | 2020-05-07 06:31 | NUR ---
THIS RN IN TO ASSESS PT AND ADMINISTER ORDERED MEDICATIONS. PT AWOKE EASILY AND IMMEDIATELY STATED SHE HAD TO USE THE BATHROOM "NOW". PT ASSISTED UP AND WAS ABLE TO WALK WITH MINIMAL HELP TO THE BATHROOM. PT VOIDED AND WAS THEN ABLE TO GET BACK INTO BED WITHOUT ASSISTANCE. PT GAIT STILL WEAK. PT THEN GIVEN SCHEDULED MEDICATIONS, VITALS TAKEN, AND PT ASSESSED. IVF INFUSING ORDERED. PT DENIES ANY PAIN WHEN ASKED AND STATES SHE WANTS TO GO BACK TO SLEEP. PT REPORTS NO FURTHER NEEDS WHEN ASKED. PT NOW LAYING IN BED, SON IN ROOM, CALL LIGHT IN REACH, BED IN LOWEST POSITION, IVF INFUSING, WILL CONTINUE PLAN OF CARE.
--- NOTE | 2020-05-07 06:42 | NUR ---
PT SLEPT THROUGH MOST OF THE NIGHT. PT HAD SOME COMPLAINTS OF ABDOMINAL DISCOMFORT/NAUSEA FROM 2300 TO 0100. PT GIVEN PRN ZOFRAN FOLLOWED BY PRN COMPAZINE. PT WAS ABLE TO SLEEP THROUGH THE REST OF THE NIGHT. PT REPORTS NO PAIN THIS MORNING. PT STANDBYE ASSIST.
--- NOTE | 2020-05-07 07:05 | NUR ---
SHIFT REPORT FROM DAMASO RN INCLUDED: pt undergoing observations and diagnostics to learn if her abdominal pain and issues with N/V and discomfort with intake is being caused by gastroparesis or peptic ulcer disease. pt currently resting in bed, eyes closed, breathing even and unlabored, table and call light within reach. Son at bedside.
--- NOTE | 2020-05-07 08:17 | NUR ---
PATIENT WAS IN BED SLEEPING, THIS ARTIFICIAL FLOWERS STARCHER GOT GLUCOSE READING, PATIENT'S TRAY AT THE BEDSIDE, PATIENT WAS NOTIFIED THAT BREAKFAST HAD ARRIVED BUT WASN'T INTERESTED AT THIS TIME, SHE ROLLED OVER AND WENT BACK TO SLEEP
--- NOTE | 2020-05-07 09:00 | NUR ---
MED PASS + ASSESSMENT pt able to take all meds without difficulty. pts assessment complete, VSS. pt denies pain and nausea at this time. pt reports that she had gas discomfort yesterday but has none at this time. pt breakfast tray beside her. CBG was 213, 3 units insulin given per sliding scale orders. pt denies further needs at this time. table and call light within reach.
--- NOTE | 2020-05-07 10:00 | NUR ---
ROUNDING Rounding on pt. pt lying in bed, eyes closed, breathing even and unlabored, table and call light within reach. Son in room, on couch.
--- NOTE | 2020-05-07 11:00 | NUR ---
MED PASS pt able to meds without difficulty. pt given fresh water without ice. pt refuses up to chair and denies further needs at this time. table and call light within reach.
--- NOTE | 2020-05-07 12:00 | NUR ---
CBG + INSULIN ADMIN pt CBG was 233, 5 units given per sliding scale orders. pt able to get med without difficulty. pt full liquid tray beside her. pt denies pain and nausea at this time. table and call light within reach, son at bedside.
[2020-05-07] MEDS ORDERED: REGLAN5 MG PO (13:43)
--- NOTE | 2020-05-07 14:18 | NUR ---
UNABLE TO VISIT WITH PT-DIETARY STAFF IN WITH PT. WILL CHECK BACK
--- NOTE | 2020-05-07 14:26 | NUR ---
PATIENT WAS SITTIING UP AT BEDSIDE, PATIENTS SON WAS IN ROOM, VITAL SIGNS AND INTAKE AND OUTPUT WERE RECORDED, NOTHING ELSE TO REPORT AT THIS TIME
--- NOTE | 2020-05-07 14:38 | NUR ---
CONSULT RECEIVED FOR GASTROPARESIS DIET EDUCATION BEFORE PATIENT GOES HOME. HER SON IS IN THE ROOM WELL. PROVIDED HANDOUT FROM THE NUTRITION CARE MANUAL ON GASTROPARESIS DIET. EXPLAINED THIS DIET RECOMMENDS AVOIDING LARGE MEALS THAT ARE HIGH IN FAT AND FIBER. FROM OUR CONVERSATION, PATIENT DOES NOT EAT LARGE AMOUNTS NORMALLY. SHE LIKES EGGS SHE HAS CHICKENS. SHE LIKES PEANUT BUTTER SO I SHOWED HER ON THE HANDOUT TO EAT ONLY 1 TBSP. PER DAY. SHE ALSO [place]ARD[place] IN THE SUMMER AND LIKES TO EAT FRESH VEGGIES. SHE WON'T HAVE A PROBLEM WITH TOO MANY OF THEM LONG SHE PEELS THE SKIN OFF. I CAUTIONED HER TO BE CAREFUL WITH LARGE AMOUNTS OF RASPBERRIES SINCE THEY ARE HIGH IN FIBER. EXPLAINED THAT ON DAYS WHEN SHE DOES NOT FEEL WELL, SHE CAN DRINK LIQUIDS INSTEAD. ALL THEIR QUESTIONS WERE ADDRESSED. MY NAME AND OFFICE # PROVIDED IN CASE QUESTIONS ARISE IN THE FUTURE.
== END 2020-05-07 15:15 | disposition home or self-care (01) ==
LOC: ED 09:39 → MS 09:40
PROVIDERS: ADMIT Internal Medicine; ATTEND Internal Medicine
DX: E11.43 Type 2 diabetes mellitus with diabetic autonomic (poly)neuropathy (principal); K31.84 Gastroparesis; E86.0 Dehydration; E87.6 Hypokalemia; E11.65 Type 2 diabetes mellitus with hyperglycemia; D50.9 Iron deficiency anemia, unspecified; I48.0 Paroxysmal atrial fibrillation; I10 Essential (primary) hypertension; Z79.4 Long term (current) use of insulin; Z79.01 Long term (current) use of anticoagulants; Z87.891 Personal history of nicotine dependence; Z88.6 Allergy status to analgesic agent; Z88.1 Allergy status to other antibiotic agents; Z88.5 Allergy status to narcotic agent; Z20.822 Contact with and (suspected) exposure to COVID-19
CPT/HCPCS: 36415; 71045; 78264; 80053; 81001; 82728; 83036; 83540; 83605; 83690; 83735; 84466; 84484; 85025; 93005; 93010; 96361; 96365; 96375; 99285-25; A9541; C9113; C9803; J0780; J1815; J2270; J2405; J3475; J3480; J7030; J7120; J7121; U0003

== ENCOUNTER 2021-08-26 14:48 | Emergency (ER) | payer MEDICARE ==
[~2021-08-26] VITALS: Ht 167.6 cm; Wt 88.2 kg
[~2021-08-26 14:48] MED LIST changes: +I-CAPS WITH LU1 EACH PO; +METOPROLOL TART25 MG PO; +MIRALAX17 GM PO; +VITAMIN D-40010 MCG PO; -VITAMIN D400 UNIT PO; +VITAMIN E400 UNI1 PO
[2021-08-26] MEDS ORDERED: IRON325 M1 PO (16:08)
--- NOTE | 2021-08-26 19:30 | NUR ---
RECIEVED CALL FROM CCU. PATIENTS HR SUSTATINED ABOVE 100. PATIENT GIVEN PRN LOPRESSOR PER ORDER. PATIENT DENIES ANY CHEST PAIN. PATIENT DENIES ANY NEEDS. CALL LIGHT IN REACH. IV INFUSING PER ORDER.
--- NOTE | 2021-08-26 19:50 | NUR ---
REPORT RECEIVED FROM SHELIA. PT IS ON TELE IN [place] WITH MEDS PRN FOR HEART Rate. pt will receive blood 2units prbc tonight .
--- NOTE | 2021-08-26 20:13 | NUR ---
PATIENTS BLOOD VERIFIED WITH 2 RNS. TOM RN AND JOSEF BORREGO. DR GORMAN AT BEDSIDE CONSENT WITNESSED TO GIVE BLOOD. BLOOD STARTED INFUSING @ 1999. PATIENT ASSISTED TO THE RESTROOM A 1PA. PATIENT IS BACK IN BED RESTING EATING A SANDWICH BOX.
--- NOTE | 2021-08-26 20:17 | NUR ---
15MIN SINCE BLOOD TRANSFUSION STARTED. VITALS TAKEN AND RECORDED. PATIENT SHOWS NO S/SX OF TRANSFUSION REACTION. PATIENT IS RESTING IN BED EATING NO FURTHER NEEDS NOTED. CALL LIGHT IN REACH.
--- NOTE | 2021-08-26 22:07 | NUR ---
BAG #1 COMPLETED INFUSING @ 2200. VITASL TAKEN AND RECORDED. NO S/SX OF REACTION. PATIENT STATED "I FEEL BETTER". SECOND BAG OF BLOOD VERIFIED BY TOM RN AND ALEJANDRO BORREGO. VITASL TAKEN AND RECORDED.
--- NOTE | 2021-08-26 22:15 | NUR ---
PATIENTS 15 MIN COMPLETED OF 2ND UNIT OF PRBC. NO S/SX OF REACTION. PATIENT DENIES ANY NEEDS. CALL LIGHT IN REACH.
--- NOTE | 2021-08-27 00:39 | NUR ---
PATIENTS SECOND UNIT OF PRBC COMPLETED INFUSING. VITALS TAKEN AND RECORDED. IV FLUIDS INFUSING PER ORDER. PATEINT STATED "I FELL SO MUCH BETTER". PATIENT DENIES ANY NEEDS. CALL LIGHT IN REACH.
--- NOTE | 2021-08-27 06:06 | NUR ---
ASKED BY WEED CONTROL INSPECTOR TO RECHECK BLOOD SUGAR, BLOOD SUGAR FROM AM LABS READS 56, ACCUCHECK RESULT OF 57. PRIMARY RN ALEJANDRO IN ROOM AND GIVING pt ORANGE JUICE/SODA MIXTURE.
--- NOTE | 2021-08-27 06:36 | NUR ---
PT RECEIVED 2 UNITS PRBC LAST NIGHT. NOTED THE EDEMA IN BILATERAL FEET AND ANKLES IS GONE. PTS BG WAS LOW AT 57 THIS AM SHE WAS GIVEN 118 MLS ORANGE JUICE. BG RECHECK SHOWS 103. PT WAS ASSISTED UP TO THE BATHROOM TO VOID. SHE AMBULATED WELL WITH AN SBA AND HER CANE. PT NOTES SHE FEELS BETTER. SKIN IS PINK.
--- NOTE | 2021-08-27 07:17 | EKG ---
[facility] [address] [place] [address] Signed Atrial flutter with 2:1 AV conduction Nonspecific intraventricular block Minimal voltage criteria for LVH, may be normal variant ( [employer] product ) Abnormal ECG When compared with ECG of 05-MAY-2020 13:42, Atrial flutter has replaced Sinus rhythm Vent. rate has increased BY 66 BPM QRS duration has increased ST no longer depressed in Anterior leads T wave inversion more evident in Inferior leads Confirmed by ALEJANDRO GORMAN MD ([id number] on 08/27/2021 7:17:18 AM Electronically Signed By: ALEJANDRO GORMAN MD 08/27/21 0717 PATIENT NAME: LUIS MIGUEL ANN Electrocardiogram DATE OF : 48 PHYSICIAN: ALEJANDRO GORMAN MD REPORT #: [id number] REPORT IS CONFIDENTIAL AND NOT TO BE RELEASED WITHOUT AUTHORIZATION
--- NOTE | 2021-08-27 07:54 | NUR ---
MORNING ASSESSMENT COMPLETE. PT C/O NASAL CONGESTION. REPORTED BY ROAD EQUIPMENT OPERATOR BLOOD SUGAR 59. PT ASYMPTOMATIC, GIVEN ORANGE JUICE, PEANUT BUTTER AND CRACKERS. WILL RECHECK AFTER 15 MINUTES.
--- NOTE | 2021-08-27 08:06 | NUR ---
BLOOD SUGAR RECHECK 74. BREAKFAST TRAY DELIVERED.
[2021-08-27] MEDS ORDERED: AMOX TR-K CLV1 EAC1 PO (08:45)
[2021-08-27] MEDS ORDERED: SUCRALFATE1 GM PO (08:57)
--- NOTE | 2021-08-27 09:03 | NUR ---
PT IS SITTING ON SIDE OF BED. I&O AND VS CHARTED CALL LIGHT WITHIN REACH NO FURTHER TASKS AT THIS TIME
--- NOTE | 2021-08-27 09:14 | NUR ---
BLOOD SUGAR RECHECK 129.
[2021-08-27] MEDS ORDERED: LANTUS SOL100 UNIT/1 SUB-Q (10:21)
== END 2021-08-27 10:30 | disposition short-term general hospital (02) ==
LOC: ED 14:48 → MS 14:50 → ED 08-27 10:30
PROC: 30233N1 Transfusion of Nonautologous Red Blood Cells into Peripheral Vein, Percutaneous Approach (ICD-10-PCS; principal; 2021-08-26)
DX: I48.91 Unspecified atrial fibrillation (principal); D50.9 Iron deficiency anemia, unspecified; E11.9 Type 2 diabetes mellitus without complications; M47.9 Spondylosis, unspecified; I10 Essential (primary) hypertension; Z20.822 Contact with and (suspected) exposure to COVID-19; Z79.01 Long term (current) use of anticoagulants; Z87.891 Personal history of nicotine dependence; Z88.5 Allergy status to narcotic agent; Z88.1 Allergy status to other antibiotic agents; Z88.6 Allergy status to analgesic agent; Z79.4 Long term (current) use of insulin; Z79.899 Other long term (current) drug therapy; Z79.84 Long term (current) use of oral hypoglycemic drugs
CPT/HCPCS: 36415; 36430; 80048; 80053; 83735; 84484; 85025; 85060; 86850; 86900; 86901; 86922; 93005; 93010; 96361; 96365; 96375; 99285-25; A9270; C9803; J3475; J7040; J7060; J7121; P9016; U0003

== ENCOUNTER 2021-10-01 12:09 | Emergency (ER) | payer MEDICARE ==
[~2021-10-01] VITALS: Ht 167.6 cm; Wt 88.2 kg
[~2021-10-01 12:09] MED LIST changes: +AMOX TR-K CLV1 EAC1 PO; +LANTUS SOL100 UNIT/1 SUB-Q; +SUCRALFATE1 GM PO
== END 2021-10-01 19:56 | disposition home or self-care (01) ==
LOC: ED 12:09
DX: J06.9 Acute upper respiratory infection, unspecified (principal); Z20.822 Contact with and (suspected) exposure to COVID-19; E11.9 Type 2 diabetes mellitus without complications; I10 Essential (primary) hypertension; Z87.891 Personal history of nicotine dependence; Z88.8 Allergy status to other drugs, medicaments and biological substances; Z88.5 Allergy status to narcotic agent; Z88.1 Allergy status to other antibiotic agents; Z79.899 Other long term (current) drug therapy; Z79.84 Long term (current) use of oral hypoglycemic drugs; Z79.4 Long term (current) use of insulin
CPT/HCPCS: 36415; 80053; 81001; 84484; 85025; 85060; 87502; 96374; 99284-25; C9803; J7030; U0003

== ENCOUNTER 2023-08-26 11:42 | Emergency (ER) | payer OTHER, MEDICARE ==
[~2023-08-26] VITALS: Ht 167.6 cm; Wt 74.2 kg
[2023-08-26] MEDS ORDERED: HYDROCODONE/ACETA 7.5/325 TAB PO ONE (12:00)
[2023-08-26] MEDS ORDERED: ACETAMINOPHEN 500 MG TAB PO ONE (12:30)
[2023-08-26] MEDS ORDERED: HYDROCODON-ACE1 EA10 PO (12:37)
[2023-08-26 13:05] VITALS: BP 148/57
== END 2023-08-26 13:09 | disposition home or self-care (01) ==
LOC: ED 11:42
DX: S52.501A Unspecified fracture of the lower end of right radius, initial encounter for closed fracture (principal); I10 Essential (primary) hypertension; E11.9 Type 2 diabetes mellitus without complications; W01.0XXA Fall on same level from slipping, tripping and stumbling without subsequent striking against object, initial encounter; Z87.891 Personal history of nicotine dependence; Z88.1 Allergy status to other antibiotic agents; Z88.5 Allergy status to narcotic agent; Z88.8 Allergy status to other drugs, medicaments and biological substances; Z79.01 Long term (current) use of anticoagulants; Z79.899 Other long term (current) drug therapy; Z79.84 Long term (current) use of oral hypoglycemic drugs; Z79.4 Long term (current) use of insulin
CPT/HCPCS: 29125; 73080; 73110; 99283-25; A9270